=== PATIENT | male | born 1940 | race Caucasian/White ===

== ENCOUNTER → 2020-04-10 | Outpatient (CLI) | payer MEDICARE, BC ==
--- NOTE | 2020-04-10 13:26 | CT ---
EXAMINATION TYPE: CT brain wo con DATE OF EXAM: 04/10/2020 COMPARISON: None HISTORY: 80-year-old male dizziness and fall TECHNIQUE: Examination was done in axial plane without intravenous contrast. Coronal and sagittal r econstructions performed. CT DLP: 1072.3 mGycm Automated exposure control for dose reduction was used. FINDINGS: There is no evidence of acute intracranial hemorrhage, acute ischemic changes, mass, mass-effect, or extra-axial fluid collection. There is no effacement of cerebral sulci or basal subarachnoid cister ns. There is no hydrocephalus. There is no midline shift. Murray-white matter distinction is preserv ed. Moderate cerebral cortical atrophy. Atherosclerotic calcifications within the bilateral carotid sipho ns. Rightward nasal septal deviation. Trace mucosal thickening ethmoid air cells. Mastoid air cells well pneumatized. Orbits and globes are intact. IMPRESSION: Moderate cerebral cortical atrophy. No acute intracranial abnormality seen.
--- NOTE | 2020-04-10 14:42 | US ---
EXAMINATION TYPE: US carotid duplex BILAT DATE OF EXAM: 04/10/2020 COMPARISON: NONE CLINICAL HISTORY: 80-year-old male R55 Syncope. TECHNIQUE: Carotid duplex ultrasound examination. Indirect Doppler criteria was utilized. FINDINGS: EXAM MEASUREMENTS: RIGHT: Peak Systolic Velocity (PSV) cm/sec ----- Right CCA: 65.8 ----- Right ICA: 52.3 ----- Right ECA: 73.9 ICA/CCA ratio: 0.8 RIGHT: End Diastole cm/sec ----- Right CCA: 14.3 ----- Right ICA: 18.8 ----- Right ECA: 11.3 LEFT: Peak Systolic Velocity (PSV) cm/sec ----- Left CCA: 78.5 ----- Left ICA: 59.8 ----- Left ECA: 84.7 ICA/CCA ratio: 0.8 LEFT: End Diastole cm/sec ----- Left CCA: 20.9 ----- Left ICA: 20.8 ----- Left ECA: 9.0 VERTEBRALS (direction of flow): Right Vertebral: Antegrade Left Vertebral: Antegrade Rhythm: Normal Documentation Spec notes: Moderate atherosclerotic changes on the right and mild on the left with no signifi cant velocity increases. IMPRESSION: No hemodynamically significant internal carotid artery stenosis on either side. Criteria for Assigning % of Stenosis / Diameter reduction (Estimation based on the indirect measurements of the internal carotid artery velocities (ICA PSV). 1. Normal (no stenosis)=ICA PSV < 125 cm/s: ratio < 2.0: ICA EDV<40 cm/s. 2. Less than 50% stenosis=ICA PSV < 125 cm/s: ratio < 2.0: ICA EDV<40 cm/s. 3. 50 to 69% stenosis=ICA PSV of 125 to 230 cm/s: ration 2.0 ? 4.0: ICA EDV 40-100 cm/s. 4. Greater than 70% stenosis to near occlusion= ICA PSV > 230 cm/s: ratio > 4.0: ICA EDV > 100 cm/s. 5. Near occlusion= ICA PSV velocities may be low or undetectable: variable ratio and ICA EDV. 6. Total occlusion=unable to detect flow.
--- NOTE | 2020-04-17 17:56 | HM ---
HOLTER MONITOR REPORT [id number] HOLTER MONITOR REPORT: The patient in his diary had no entries. Predominant rhythm appears to be sinus, with a heart rate ranging from 47 to 71 beats per minute with average heart rate of 61 beats per minute. There were rare isolated PACs and PVCs noted. There was no evidence of any significant bradyarrhythmia. FINAL IMPRESSION: This is an unremarkable 24-hour DCG with predominant sinus rhythm, sinus bradycardia, isolated PACs and PVCs. No significant bradyarrhythmia was noted. The patient did not report any symptoms in the diary. MMODL / IJN: [id number] /
== END | disposition home or self-care (01) ==
LOC: RADCTMAIN 10:49
PROVIDERS: ATTEND Family Medicine
DX: G31.9 Degenerative disease of nervous system, unspecified (principal); I49.3 Ventricular premature depolarization; I49.1 Atrial premature depolarization; I49.8 Other specified cardiac arrhythmias
CPT/HCPCS: 70450; 93225; 93226; 93880

== ENCOUNTER 2020-09-30 15:11 | Inpatient (IN) | payer BC, MEDICARE ==
[2020-09-30] MEDS ORDERED: SODIUM CHLORIDE 0.9% 1,000 ML IV STA (16:14)
--- NOTE | 2020-09-30 16:24 | ED ---
General Adult HPI - General Chief complaint: Chest Pain Stated complaint: chest pain Time Seen by Provider: 09/30/20 15:15 Source: patient, RN notes reviewed, old records reviewed Mode of arrival: wheelchair Limitations: no limitations - History of Present Illness Initial comments: This is a 80-year-old male presents emergency Department complaining that his been becoming weaker and weaker over the last month. Patient denies any pain. Patient states he is coughing more and feels like he can't take his big breath as he used to. Patient also states she's had a weight loss over the last couple of months. Patient denies any fever or chills. Patient denies any chest pain or palpitations. Patient denies abdominal pain patient denies nausea vomiting or diarrhea. Patient states she just can't get over the fatigue. She denies any exposure to cold. Patient states she had a second covert shot on September 11. - Related Data Home Medications Medication Instructions Recorded Confirmed Allopurinol [Zyloprim] 300 mg PO HS 09/30/20 09/30/20 Aspirin EC [Ecotrin Low Dose] 81 mg PO HS 09/30/20 09/30/20 Finasteride [Proscar] 5 mg PO HS 09/30/20 09/30/20 Simvastatin [Zocor] 20 mg PO HS 09/30/20 09/30/20 amLODIPine BESYLATE/BENAZEPRIL 1 cap PO HS 09/30/20 09/30/20 [amLODIPine BESYLATE/BENAZEPRIL 10-20 MG] atenoloL [Atenolol] 25 mg PO HS 09/30/20 09/30/20 Allergies Allergy/AdvReac Type Severity Reaction Status Date / Time No Known Allergies Allergy Verified 09/30/20 18:07 Review of Systems ROS Statement: Those systems with pertinent positive or pertinent negative responses have been documented in the HPI. ROS Other: All systems not noted in ROS Statement are negative. Past Medical History Past Medical History: Coronary Artery Disease (CAD), Hyperlipidemia, Hypertension, Prostate Disorder Additional Past Medical History / Comment(s): gout History of Any Multi-Drug Resistant Organisms: None Reported Past Surgical History: Appendectomy, Orthopedic Surgery Past Psychological History: No Psychological Hx Reported Smoking Status: Never smoker, Second hand smoke exposure Past Alcohol Use History: Daily Past Drug Use History: Marijuana General Exam - General Exam Comments Initial Comments: GENERAL: Patient is well-developed and well-nourished. Patient is nontoxic and well- hydrated and is in mild distress. ENT: Neck is soft and supple. No significant lymphadenopathy is noted. Oropharynx is clear. Moist mucous membranes. Neck has full range of motion without eliciting any pain. EYES: The sclera were anicteric and conjunctiva were pink and moist. Extraocular movements were intact and pupils were equal round and reactive to light. Eyelids were unremarkable. PULMONARY: Patient has diminished breath sounds on the right. CARDIOVASCULAR: There is a regular rate and rhythm without any murmurs gallops or rubs. ABDOMEN: Soft and nontender with normal bowel sounds. SKIN: Skin is clear with no lesions or rashes and otherwise unremarkable. NEUROLOGIC: Patient is alert and oriented x3. Cranial nerves II through XII are grossly intact. Motor and sensory are also intact. Normal speech, volume and content. Symmetrical smile. MUSCULOSKELETAL: Normal extremities with adequate strength and full range of motion. No lower extremity swelling or edema. No calf tenderness. LYMPHATICS: No significant lymphadenopathy is noted PSYCHIATRIC: Normal psychiatric evaluation. Limitations: no limitations Course Vital Signs 09/30/20 09/30/20 15:15 17:25 Temperature 98.1 F Pulse Rate 111 H 68 Respiratory 24 18 Rate Blood Pressure 104/60 136/68 O2 Sat by Pulse 86 L 97 Oximetry Medical Decision Making - Medical Decision Making EKG shows sinus rhythm at 76 bpm MS interval 160 QRS 114 Q-T intervals 390 QTC is 438. Patient's EKG shows no ST segment elevation or depression. Chest x-ray shows large mass versus pleural effusion. Computed tomography scan shows large effusion extending to the mediastinum. Area may be infected per the radiologist. I spoke with . she agreed to admit the patient admitted the patient wrote admi tting orders. - Lab Data Result diagrams: 09/30/20 16:17 09/30/20 16:17 Lab Results 09/30/20 09/30/20 09/30/20 Range/Units 16:17 16:17 16:17 WBC 28.9 H (3.8-10.6) k/uL RBC 3.84 L (4.30-5.90) m/uL Hgb 11.4 L (13.0-17.5) gm/dL Hct 36.1 L (39.0-53.0) % MCV 94.1 (80.0-100.0) fL MCH 29.7 (25.0-35.0) pg MCHC 31.6 (31.0-37.0) g/dL RDW 13.6 (11.5-15.5) % Plt Count 489 H (150-450) k/uL MPV 7.6 Neutrophils % 93 % Lymphocytes % 3 % Monocytes % 3 % Eosinophils % 0 % Basophils % 0 % Neutrophils # 26.8 H (1.3-7.7) k/uL Lymphocytes # 0.9 L (1.0-4.8) k/uL Monocytes # 1.0 (0-1.0) k/uL Eosinophils # 0.0 (0-0.7) k/uL Basophils # 0.0 (0-0.2) k/uL PT 11.6 (9.0-12.0) sec INR 1.1 (<1.2) APTT 23.5 (22.0-30.0) sec Sodium 133 L (137-145) mmol/L Potassium 4.9 (3.5-5.1) mmol/L Chloride 99 (98-107) mmol/L Carbon Dioxide 23 (22-30) mmol/L Anion Gap 11 mmol/L BUN 37 H (9-20) mg/dL Creatinine 1.52 H (0.66-1.25) mg/dL Est GFR (CKD-EPI)AfAm 50 (>60 ml/min/1.73 sqM) Est GFR (CKD-EPI)NonAf 43 (>60 ml/min/1.73 sqM) Glucose 128 H (74-99) mg/dL Plasma Lactic Acid Shakir (0.7-2.0) mmol/L Calcium 9.8 (8.4-10.2) mg/dL Magnesium 1.8 (1.6-2.3) mg/dL Total Bilirubin 0.5 (0.2-1.3) mg/dL AST 95 H (17-59) U/L ALT 141 H (4-49) U/L Alkaline Phosphatase 172 H (38-126) U/L Troponin I (0.000-0.034) ng/mL NT-Pro-B Natriuret Pep pg/mL Total Protein 6.5 (6.3-8.2) g/dL Albumin 3.1 L (3.5-5.0) g/dL Urine Color Urine Appearance (Clear) Urine pH (5.0-8.0) Ur Specific [place] (1.001-1.035) Urine Protein (Negative) Urine Glucose (UA) (Negative) Urine Ketones (Negative) Urine Blood (Negative) Urine Nitrite (Negative) Urine Bilirubin (Negative) Urine Urobilinogen (<2.0) mg/dL Ur Leukocyte Esterase (Negative) Urine RBC (0-5) /hpf Urine WBC (0-5) /hpf Ur Squamous Epith Cells (0-4) /hpf Urine Bacteria (None) /hpf Hyaline Casts (0-2) /lpf Urine Mucus (None) /hpf 09/30/20 09/30/20 09/30/20 Range/Units 16:17 16:17 16:17 WBC (3.8-10.6) k/uL RBC (4.30-5.90) m/uL Hgb (13.0-17.5) gm/dL Hct (39.0-53.0) % MCV (80.0-100.0) fL MCH (25.0-35.0) pg MCHC (31.0-37.0) g/dL RDW (11.5-15.5) % Plt Count (150-450) k/uL MPV Neutrophils % % Lymphocytes % % Monocytes % % Eosinophils % % Basophils % % Neutrophils # (1.3-7.7) k/uL Lymphocytes # (1.0-4.8) k/uL Monocytes # (0-1.0) k/uL Eosinophils # (0-0.7) k/uL Basophils # (0-0.2) k/uL PT (9.0-12.0) sec INR (<1.2) APTT (22.0-30.0) sec Sodium (137-145) mmol/L Potassium (3.5-5.1) mmol/L Chloride (98-107) mmol/L Carbon Dioxide (22-30) mmol/L Anion Gap mmol/L BUN (9-20) mg/dL Creatinine (0.66-1.25) mg/dL Est GFR (CKD-EPI)AfAm (>60 ml/min/1.73 sqM) Est GFR (CKD-EPI)NonAf (>60 ml/min/1.73 sqM) Glucose (74-99) mg/dL Plasma Lactic Acid Shakir 1.7 (0.7-2.0) mmol/L Calcium (8.4-10.2) mg/dL Magnesium (1.6-2.3) mg/dL Total Bilirubin (0.2-1.3) mg/dL AST (17-59) U/L ALT (4-49) U/L Alkaline Phosphatase (38-126) U/L Troponin I <0.012 (0.000-0.034) ng/mL NT-Pro-B Natriuret Pep 1420 pg/mL Total Protein (6.3-8.2) g/dL Albumin (3.5-5.0) g/dL Urine Color Urine Appearance (Clear) Urine pH (5.0-8.0) Ur Specific [place] (1.001-1.035) Urine Protein (Negative) Urine Glucose (UA) (Negative) Urine Ketones (Negative) Urine Blood (Negative) Urine Nitrite (Negative) Urine Bilirubin (Negative) Urine Urobilinogen (<2.0) mg/dL Ur Leukocyte Esterase (Negative) Urine RBC (0-5) /hpf Urine WBC (0-5) /hpf Ur Squamous Epith Cells (0-4) /hpf Urine Bacteria (None) /hpf Hyaline Casts (0-2) /lpf Urine Mucus (None) /hpf 09/30/20 Range/Units 17:32 WBC (3.8-10.6) k/uL RBC (4.30-5.90) m/uL Hgb (13.0-17.5) gm/dL Hct (39.0-53.0) % MCV (80.0-100.0) fL MCH (25.0-35.0) pg MCHC (31.0-37.0) g/dL RDW (11.5-15.5) % Plt Count (150-450) k/uL MPV Neutrophils % % Lymphocytes % % Monocytes % % Eosinophils % % Basophils % % Neutrophils # (1.3-7.7) k/uL Lymphocytes # (1.0-4.8) k/uL Monocytes # (0-1.0) k/uL Eosinophils # (0-0.7) k/uL Basophils # (0-0.2) k/uL PT (9.0-12.0) sec INR (<1.2) APTT (22.0-30.0) sec Sodium (137-145) mmol/L Potassium (3.5-5.1) mmol/L Chloride (98-107) mmol/L Carbon Dioxide (22-30) mmol/L Anion Gap mmol/L BUN (9-20) mg/dL Creatinine (0.66-1.25) mg/dL Est GFR (CKD-EPI)AfAm (>60 ml/min/1.73 sqM) Est GFR (CKD-EPI)NonAf (>60 ml/min/1.73 sqM) Glucose (74-99) mg/dL Plasma Lactic Acid Shakir (0.7-2.0) mmol/L Calcium (8.4-10.2) mg/dL Magnesium (1.6-2.3) mg/dL Total Bilirubin (0.2-1.3) mg/dL AST (17-59) U/L ALT (4-49) U/L Alkaline Phosphatase (38-126) U/L Troponin I (0.000-0.034) ng/mL NT-Pro-B Natriuret Pep pg/mL Total Protein (6.3-8.2) g/dL Albumin (3.5-5.0) g/dL Urine Color Yellow Urine Appearance Cloudy (Clear) Urine pH 5.0 (5.0-8.0) Ur Specific [place] 1.021 (1.001-1.035) Urine Protein Trace H (Negative) Urine Glucose (UA) Negative (Negative) Urine Ketones Negative (Negative) Urine Blood Negative (Negative) Urine Nitrite Negative (Negative) Urine Bilirubin Negative (Negative) Urine Urobilinogen 2.0 (<2.0) mg/dL Ur Leukocyte Esterase Negative (Negative) Urine RBC 2 (0-5) /hpf Urine WBC 1 (0-5) /hpf Ur Squamous Epith Cells 1 (0-4) /hpf Urine Bacteria Rare H (None) /hpf Hyaline Casts 5 H (0-2) /lpf Urine Mucus Occasional H (None) /hpf Disposition Clinical Impression: Pleural effusion, Lung infection Disposition: ADMITTED IP TO THIS HOSP Referrals: Ryan Gay MD [Primary Care Provider] - 1-2 days Time of Disposition: 20:17
[2020-09-30 16:27] LABS: Basophils % (A) 0 %; Eosinophils % (A) 0 %; HCT 36.1 % (39.0-53.0); HGB 11.4 gm/dL (13.0-17.5); Lymphocytes # (A) 0.9 k/uL (1.0-4.8); Lymphocytes % (A) 3 %; MCH 29.7 pg (25.0-35.0); MCHC 31.6 g/dL (31.0-37.0); MCV 94.1 fL (80.0-100.0); Mean Platelet Volume 7.6; Monocytes % (A) 3 %; Neutrophils % (A) 93 %; Platelet Count 489 k/uL (150-450); RBC 3.84 m/uL (4.30-5.90); RDW 13.6 % (11.5-15.5); WBC 28.9 k/uL (3.8-10.6)
[2020-09-30 16:32] LABS: Neutrophils # (A) 26.8 k/uL (1.3-7.7)
[2020-09-30 16:35] LABS: INR 1.1 (<1.2); Prothrombin Time 11.6 sec (9.0-12.0)
[2020-09-30 16:36] LABS: Partial Thromboplastin Time 23.5 sec (22.0-30.0)
[2020-09-30 16:40] LABS: Albumin 3.1 g/dL (3.5-5.0); Calcium 9.8 mg/dL (8.4-10.2); Magnesium 1.8 mg/dL (1.6-2.3); Potassium 4.9 mmol/L (3.5-5.1); Total Bilirubin 0.5 mg/dL (0.2-1.3); Total Protein 6.5 g/dL (6.3-8.2)
--- NOTE | 2020-09-30 17:32 | XR ---
EXAMINATION TYPE: XR chest 2V DATE OF EXAM: 09/30/2020 CLINICAL HISTORY: Weakness. TECHNIQUE: Frontal and lateral view of the chest. COMPARISON: None FINDINGS: The cardiomediastinal silhouette is within normal limits for size. Pulmonary vasculature i s normal. There is a large masslike confluent opacity of the right lower lobe. No pleural effusion o r pneumothorax seen. The osseous structures are intact. IMPRESSION: Large masslike confluent opacity of the right lower lobe. CT chest with contrast is lopez mmended for further evaluation.
[2020-09-30] MEDS ORDERED: cefTRIAXone IN SWFI 1,000 MG/10 ML SYRINGE IVP STA (17:46)
[2020-09-30 17:48] LABS: Appearance,Urine Cloudy (Clear); Bacteria,Urine Rare /hpf; Bilirubin,Urine Negative (Negative); Blood,Urine Negative (Negative); Color,Urine Yellow; Glucose,Urine (UA) Negative (Negative); Hyaline Casts,Urine 5 /lpf (0-2); Ketones,Urine Negative (Negative); Leukocyte Esterase,Urine Negative (Negative); Mucus,Urine Occasional /hpf; Nitrite,Urine Negative (Negative); Protein,Urine Trace (Negative); RBC,Urine 2 /hpf (0-5); Specific Gravity,Urine 1.021 (1.001-1.035); Squamous Epithelial Cell,Urine 1 /hpf (0-4); WBC,Urine 1 /hpf (0-5)
[2020-09-30] MEDS ORDERED: RX INFO: IV CONTRAST WAS GIVEN 1 EACH MISC MISCELLANE PRN (17:48)
--- NOTE | 2020-09-30 20:02 | CT ---
EXAMINATION TYPE: CT chest w con DATE OF EXAM: 09/30/2020 COMPARISON: None MRI of the abdomen get out of here HISTORY: chest mass CT DLP: 422.9 mGycm Automated exposure control for dose reduction was used. CONTRAST: CT scan of the chest is performed with IV Contrast, patient injected with 100 mL of Isovue 300. FINDINGS: LUNGS: There is a large loculated fluid collection noted posteriorly measuring approximately 22.5 cm in craniocaudal dimension by 11.3 cm in AP dimension by 15.4 cm in transverse dimension infected spencer ection is not excluded. There is curvilinear extension to the esophagus. The remainder of the lungs a re clear. Mild right basilar atelectasis. MEDIASTINUM: There are no greater than 1 cm hilar or mediastinal lymph nodes. No pericardial effusi on is seen. Thoracic aorta is of normal caliber. The heart is not enlarged. UPPER ABDOMEN: Left renal cyst identified. OTHER: No additional significant abnormality is seen. IMPRESSION: 1. Large loculated pleural collection posteriorly with extension to the mediastinum adjacent to the e sophagus. Infected collection is not excluded.
[2020-09-30] MEDS ORDERED: SODIUM CHLORIDE 0.9% 1,000 ML IV ONE (20:17)
[2020-09-30] MEDS ORDERED: AZITHROMYCIN 500 MG in SODIUM CHLORIDE 0.9% 250 ML IVPB STA (20:24)
[2020-10-01] MEDS ORDERED: PIPERACILLIN-TAZOBACTAM 3.375 GM in SODIUM CHLORIDE 0.9% 100 ML IVPB SCH ×2
[2020-10-01] MEDS: PIPERACILLIN-TAZOBACTAM 3.375 GM in SODIUM CHLORIDE 0.9% 100 ML IVPB SCH ×3 (04:45→23:11)
--- NOTE | 2020-10-01 08:08 | P.HPIM ---
History of Present Illness H&P Date: 10/01/20 Chief Complaint: Pleural effusion This is a 80-year-old white male with known history of hyperlipidemia and coronary disease who states for the last several weeks he's been feeling somewhat poorly. He states no overt shortness of breath with dyspnea on exertion lately. Evaluation emergency room did show large loculated pleural effusion collection and he is now omitted for appropriate treatment. There is history of diarrhea. No nausea or vomiting. He is concerned with his home situation due to the fact that he lives alone. He is a nonsmoker. No overt second hand smoke stated. Review of Systems Constitutional: Denies chills, Denies fever Eyes: denies blurred vision, denies pain Ears, nose, mouth and throat: Denies headache, Denies sore throat Cardiovascular: Denies chest pain, Denies shortness of breath Respiratory: Reports as per HPI, Denies hemoptysis Gastrointestinal: Denies abdominal pain, Denies diarrhea, Denies nausea, Denies vomiting Musculoskeletal: Denies myalgias Integumentary: Denies pruritus, Denies rash Neurological: Denies numbness, Denies weakness Past Medical History Past Medical History: Coronary Artery Disease (CAD), Hyperlipidemia, Hypertension, Prostate Disorder Additional Past Medical History / Comment(s): gout History of Any Multi-Drug Resistant Organisms: None Reported Past Surgical History: Appendectomy, Orthopedic Surgery Past Psychological History: No Psychological Hx Reported Smoking Status: Never smoker, Second hand smoke exposure Past Alcohol Use History: Daily Past Drug Use History: Marijuana Medications and Allergies Home Medications Medication Instructions Recorded Confirmed Type Allopurinol [Zyloprim] 300 mg PO HS 09/30/20 09/30/20 History Aspirin EC [Ecotrin Low Dose] 81 mg PO HS 09/30/20 09/30/20 History Finasteride [Proscar] 5 mg PO HS 09/30/20 09/30/20 History Simvastatin [Zocor] 20 mg PO HS 09/30/20 09/30/20 History amLODIPine BESYLATE/BENAZEPRIL 1 cap PO HS 09/30/20 09/30/20 History [amLODIPine BESYLATE/BENAZEPRIL 10-20 MG] atenoloL [Atenolol] 25 mg PO HS 09/30/20 09/30/20 History Allergies Allergy/AdvReac Type Severity Reaction Status Date / Time No Known Allergies Allergy Verified 09/30/20 18:07 Physical Exam Vitals: Vital Signs Temp Pulse Resp BP Pulse Ox 10/01/20 06:00 75 18 104/65 95 09/30/20 23:00 99.2 F 73 18 105/53 95 09/30/20 20:17 98.5 F 66 18 119/73 96 09/30/20 17:25 68 18 136/68 97 09/30/20 15:15 98.1 F 111 H 24 104/60 86 L Intake and Output 09/30/20 10/01/20 10/01/20 22:59 06:59 14:59 Other: Weight 87.543 kg - Constitutional General appearance: no acute distress - EENT Eyes: EOMI - Respiratory Respiratory: bilateral: diminished - Cardiovascular Rhythm: regular Heart sounds: normal: S1, S2 Abnormal Heart Sounds: no S3 Gallop - Gastrointestinal General gastrointestinal: soft, no tenderness - Psychiatric Psychiatric: appropriate affect Results CBC & Chem 7: 09/30/20 16:17 09/30/20 16:17 Labs: Abnormal Lab Results - Last 24 Hours (Table) 09/30/20 09/30/20 09/30/20 Range/Units 16:17 16:17 17:32 WBC 28.9 H (3.8-10.6) k/uL RBC 3.84 L (4.30-5.90) m/uL Hgb 11.4 L (13.0-17.5) gm/dL Hct 36.1 L (39.0-53.0) % Plt Count 489 H (150-450) k/uL Neutrophils # 26.8 H (1.3-7.7) k/uL Lymphocytes # 0.9 L (1.0-4.8) k/uL Sodium 133 L (137-145) mmol/L BUN 37 H (9-20) mg/dL Creatinine 1.52 H (0.66-1.25) mg/dL Glucose 128 H (74-99) mg/dL AST 95 H (17-59) U/L ALT 141 H (4-49) U/L Alkaline Phosphatase 172 H (38-126) U/L Albumin 3.1 L (3.5-5.0) g/dL Urine Protein Trace H (Negative) Urine Bacteria Rare H (None) /hpf Hyaline Casts 5 H (0-2) /lpf Urine Mucus Occasional H (None) /hpf Coronavirus (PCR) (Not Detectd) 09/30/20 Range/Units 21:08 WBC (3.8-10.6) k/uL RBC (4.30-5.90) m/uL Hgb (13.0-17.5) gm/dL Hct (39.0-53.0) % Plt Count (150-450) k/uL Neutrophils # (1.3-7.7) k/uL Lymphocytes # (1.0-4.8) k/uL Sodium (137-145) mmol/L BUN (9-20) mg/dL Creatinine (0.66-1.25) mg/dL Glucose (74-99) mg/dL AST (17-59) U/L ALT (4-49) U/L Alkaline Phosphatase (38-126) U/L Albumin (3.5-5.0) g/dL Urine Protein (Negative) Urine Bacteria (None) /hpf Hyaline Casts (0-2) /lpf Urine Mucus (None) /hpf Coronavirus (PCR) Detected A (Not Detectd) Assessment and Plan (1) Pleural effusion Current Visit: Yes Status: Acute Code(s): J90 - PLEURAL EFFUSION, NOT ELSEWHERE CLASSIFIED SNOMED Code(s): 33170159 Plan: About treatment Consult pulmonology for probable thoracentesis. Check CBC and CMP in a.m. Reconcile home medications. Prognosis is guarded.
[2020-10-01 10:40] LABS: INR 1.1 (<1.2); Prothrombin Time 11.6 sec (9.0-12.0)
--- NOTE | 2020-10-01 13:17 | P.CNPUL ---
History of Present Illness Consult date: 10/01/20 Requesting physician: Ryan Gay Chief complaint: Weakness. History of present illness: 80-year-old male, who presents to the emergency department, on September 30, complaining of chest pain, and weakness. The patient states she has not been feeling well for a number of months now, maybe 2. The patient denies any pain. He is coughing. He feels like his breathing is impaired. He's also had significant weight loss over the last couple of months. There is no fever or chills. He denies any nausea, vomiting, diarrhea, or abdominal pain. He denies any genitourinary complaints. The patient was seen in the emergency room, in ER room 19. The patient was on room air. He was not receiving any IV fluids. Chest x-ray revealed a masslike infiltrate in the right lung. On computed tomography scan, there is a loculated fluid collection in the right lung, which is quite extensive. White count 28.9, hemoglobin 11.4, hematocrit 36.1, platelet count 489,000. PT, INR, PTT is normal. Sodium 133, potassium 4.9, chlorides 99, CO2 23, anion gap 11, BUN 37, creatinine 1.52. AST 95, and OT 141. N-terminal proBNP 1420. Urine is essentially negative. Coronavirus testing was positive. Review of Systems REVIEW OF SYSTEMS: CONSTITUTIONAL: Weakness and fatigue. Decreased appetite. Weight loss.] NEUROLOGIC: [ Negative.] HEENT: [ Negative.] CARDIAC: [Negative.] PULMONARY: Shortness of breath. Cough.] GI: Anorexia/cachexia. : [Negative.] RHEUMATOLOGIC: [ Negative.] IMMUNOLOGIC: [ Negative.] ENDOCRINE: [Negative. ] DERMATOLOGIC: [Negative.] Past Medical History Past Medical History: Coronary Artery Disease (CAD), Hyperlipidemia, Hyp ertension, Prostate Disorder Additional Past Medical History / Comment(s): gout History of Any Multi-Drug Resistant Organisms: None Reported Past Surgical History: Appendectomy, Orthopedic Surgery Past Psychological History: No Psychological Hx Reported Smoking Status: Never smoker, Second hand smoke exposure Past Alcohol Use History: Daily Past Drug Use History: Marijuana Medications and Allergies Home Medications Medication Instructions Recorded Confirmed Type Allopurinol [Zyloprim] 300 mg PO HS 09/30/20 09/30/20 History Aspirin EC [Ecotrin Low Dose] 81 mg PO HS 09/30/20 09/30/20 History Finasteride [Proscar] 5 mg PO HS 09/30/20 09/30/20 History Simvastatin [Zocor] 20 mg PO HS 09/30/20 09/30/20 History amLODIPine BESYLATE/BENAZEPRIL 1 cap PO HS 09/30/20 09/30/20 History [amLODIPine BESYLATE/BENAZEPRIL 10-20 MG] atenoloL [Atenolol] 25 mg PO HS 09/30/20 09/30/20 History Allergies Allergy/AdvReac Type Severity Reaction Status Date / Time No Known Allergies Allergy Verified 09/30/20 18:07 Physical Exam Osteopathic Statement: *. No significant issues noted on an osteopathic structural exam other than those noted in the History and Physical/Consult. Vitals: Vital Signs Temp Pulse Resp BP Pulse Ox 10/01/20 06:00 75 18 104/65 95 09/30/20 23:00 99.2 F 73 18 105/53 95 09/30/20 20:17 98.5 F 66 18 119/73 96 09/30/20 17:25 68 18 136/68 97 09/30/20 15:15 98.1 F 111 H 24 104/60 86 L Intake and Output 09/30/20 10/01/20 10/01/20 22:59 06:59 14:59 Other: Weight 87.543 kg No acute distress, oriented 3. Currently on room air. No respiratory difficulty. HEENT examination is grossly unremarkable. Neck supple. Full range of motion. No adenopathy thyromegaly or neck vein distention. Cardiovascular examination reveals regular rhythm rate. S1-S2 normal. No S3 or S4. No discernible murmur noted. Heart rate 75 bpm. Lungs reveal scattered rhonchi. Diminished breath sounds on the right. No wheezes or crackles. Abdomen soft bowel sounds are heard. No masses or tenderness. Extremities are intact. No cyanosis clubbing or edema. Skin is without rash or lesion. Neurologic examination is brief but nonfocal. Results - Laboratory Findings CBC and BMP: 09/30/20 16:17 09/30/20 16:17 PT/INR, D-dimer PT 11.6 sec (9.0-12.0) 10/01/20 09:12 INR 1.1 (<1.2) 10/01/20 09:12 Abnormal lab findings: Abnormal Labs 09/30/20 09/30/20 09/30/20 16:17 16:17 17:32 WBC 28.9 H RBC 3.84 L Hgb 11.4 L Hct 36.1 L Plt Count 489 H Neutrophils # 26.8 H Lymphocytes # 0.9 L Sodium 133 L BUN 37 H Creatinine 1.52 H Glucose 128 H AST 95 H ALT 141 H Alkaline Phosphatase 172 H Albumin 3.1 L Urine Protein Trace H Urine Bacteria Rare H Hyaline Casts 5 H Urine Mucus Occasional H Coronavirus (PCR) 09/30/20 21:08 WBC RBC Hgb Hct Plt Count Neutrophils # Lymphocytes # Sodium BUN Creatinine Glucose AST ALT Alkaline Phosphatase Albumin Urine Protein Urine Bacteria Hyaline Casts Urine Mucus Coronavirus (PCR) Detected A - Diagnostic Findings Chest x-ray: image reviewed CT scan - chest: image reviewed Assessment and Plan Assessment: Loculated fluid collection, right posterior chest, of unclear etiology. This could relate to lung abscess, or infected parapneumonic effusion. Weakness, fatigue, weight loss, decreased appetite, all secondary to above. History of coronary artery disease. History of hyperlipidemia. History of hypertension. History of BPH. Plan: Plan dated 10/01/2020. The patient's chest x-ray and CAT scan were reviewed. There appears to be a l arge loculated pleural effusion in the right posterior chest area. The patient will have an ultrasound of the right chest. The patient has not been feeling well for about 2 months. He's had profound weakness, fatigue, decreased appetite, weight loss, and more recently, shortness of breath. Additional recommendations and suggestions are forthcoming. Prognosis is guarded. Ultrasound of the right chest is ordered. He will likely benefit from thoracentesis. He also may benefit from cardiothoracic consultation. I will await the results of the ultrasound. The patient's currently on Zosyn. ID should be consulted. Zithromax can be discontinued. Time with Patient: Greater than 30
--- NOTE | 2020-10-01 15:01 | US ---
EXAMINATION TYPE: US chest DATE OF EXAM: 10/01/2020 COMPARISON: CT and chest x-ray from yesterday CLINICAL HISTORY: pleural effusion. TECHNIQUE: Targeted ultrasound of the posterior lower right hemithorax EXAM MEASUREMENTS: Right Pleural Effusion pocket size: 14.9 cm Right skin surface to fluid distance: 1.4 cm Right side marked for possible thoracentesis outside the dept. Pulmonologists are able to review the images in the patient?s EMR. Loculated Right pleural effusion. IMPRESSIONS: Images saved correlate with CT one day earlier, moderate to large size nonsimple right p leural fluid collection with internal echoes and septations.
--- NOTE | 2020-10-01 15:59 | US ---
EXAMINATION TYPE: US guided chest tube insertion DATE OF EXAM: 10/01/2020 COMPARISON: Ultrasound same date, CT 09/30/2020 HISTORY: Right Pleural effusion. FINDINGS: Maximal barrier technique was utilized. The skin overlying a suitable pocket of fluid in t he posterior right chest was localized and the overlying skin prepped and draped. Lidocaine was used for local anesthesia. Ultrasound was used with sterile technique. A 21-gauge needle was advanced in to the pleural fluid collection using ultrasound guidance 0.18 inch wire was advanced and the access site was dilated and subsequently a sheath advanced over an upsized wire following dilation, 0.038 in ch J-wire. 8 [place] tube was subsequently advanced over the wire and fixed in place. 20 cc obtained f or laboratory analysis, yellow turbid fluid. Catheter attached to water seal. Post procedure chest x- ray pending. There is no immediate complication. The patient discharged in stable condition without complication. IMPRESSION: STATUS POST ULTRASOUND GUIDED PLEURAL DRAINAGE TUBE CATHETER PLACEMENT, POST PROCEDURE EST X-RAY PENDING. THIS PROCEDURE WAS PERFORMED BY THE UNDERSIGNED. Specimen sent for laboratory sandra lysis.
--- NOTE | 2020-10-01 16:33 | XR ---
EXAMINATION TYPE: XR chest 1V portable DATE OF EXAM: 10/01/2020 COMPARISON: Chest x-ray 09/30/2020 HISTORY: Status post right chest tube placement TECHNIQUE: Single frontal view of the chest is obtained. FINDINGS: Pigtail catheter is been placed posteriorly on the right. Patient's abnormal fluid collec tion, density in the right lung base persists. There is no evident pneumothorax. No other significant interval change. IMPRESSION: No evident complication status post pigtail catheter placement within the right pleural space.
[2020-10-01 19:49] LABS: Appearance,BF Cloudy; Nucleated Cells, Body Fluid 94000 /uL; RBC, Body Fluid 4500 /uL
[2020-10-01 19:55] LABS: Mononuclear WBC,Body Fluid 7 %; Polynuclear WBC,Body Fluid 91 %; Total Cells Counted,Body Fluid 100
[2020-10-01] MEDS ORDERED: AZITHROMYCIN 500 MG in SODIUM CHLORIDE 0.9% 250 ML IVPB SCH (21:00)
[2020-10-01] MEDS: FINASTERIDE 5 MG TAB PO SCH (23:12)
[2020-10-01] MEDS: lisinopriL 20 MG TAB PO SCH (23:12)
[2020-10-01] MEDS: ATORVASTATIN 10 MG TAB PO SCH (23:12)
[2020-10-01] MEDS: allopurinoL 300 MG TAB PO SCH (23:13)
[2020-10-01] MEDS: atenoloL 25 MG TAB PO SCH (23:13)
[2020-10-01] MEDS: ASPIRIN 81 MG PO SCH (23:13)
[2020-10-01] MEDS: amLODIPine 10 MG TAB PO SCH (23:13)
[2020-10-02 05:27] LABS: Glucose, BF Source Pleural Fluid; Glucose, Body Fluid <4 mg/dL; LDH, Body Fluid Source Pleural Fluid
[2020-10-02] MEDS: PIPERACILLIN-TAZOBACTAM 3.375 GM in SODIUM CHLORIDE 0.9% 100 ML IVPB SCH ×3 (05:45→20:21)
[2020-10-02 08:49] LABS: HGB 10.4 gm/dL (13.0-17.5); MCH 31.1 pg (25.0-35.0); MCHC 33.4 g/dL (31.0-37.0); MCV 93.1 fL (80.0-100.0); Mean Platelet Volume 7.6; Platelet Count 426 k/uL (150-450); RBC 3.33 m/uL (4.30-5.90); RDW 13.3 % (11.5-15.5); WBC 16.5 k/uL (3.8-10.6)
[2020-10-02 09:04] LABS: ALT 141 U/L (4-49); AST 106 U/L (17-59); African American GFR (CKD) 75 (>60 ml/min/1.73 sqM); Albumin 2.5 g/dL (3.5-5.0); Albumin/Globulin Ratio 0.8; Alkaline Phosphatase 141 U/L (38-126); Anion Gap 9 mmol/L; Blood Urea Nitrogen 27 mg/dL (9-20); Carbon Dioxide 23 mmol/L (22-30); Chloride 104 mmol/L (98-107); Globulin 3.2 g/dL; Glucose 92 mg/dL (74-99); Non-African American GFR(CKD) 65 (>60 ml/min/1.73 sqM); Potassium 4.4 mmol/L (3.5-5.1); Sodium 136 mmol/L (137-145); Total Bilirubin 0.5 mg/dL (0.2-1.3); Total Protein 5.7 g/dL (6.3-8.2)
--- NOTE | 2020-10-02 10:08 | P.GSCN ---
History of Present Illness Consult date: 10/02/20 Reason for Consult: Right sided empyema Requesting physician: Mae Payton History of present illness: This is a 80-year-old gentleman who follows on an outpatient basis with Dr. Gay. He has a previous medical history of coronary artery disease, hyperlipidemia, hypertension, gout, prostate disorder. He had been experiencing shortness of breath for approximately 2 months along with occasional nonproductive cough, generalized weakness, and constipation from iron supplementation. He denied any fever or chest pain. He was at his data support specialist on Tuesday for a routine follow-up appointment and was instructed to report to the emergency room at [facility]. Chest x-ray demonstrated large masslike confluent opacity in the right lower lobe. Chest CT was also completed demonstrating large loculated pleural collection posteriorly with extension into the mediastinum adjacent to the esophagus. EKG demonstrated sinus rhythm without acute ischemic changes. WBC 28.9, hemoglobin 11.4, platelet count 489, BUN 37, creatinine 1.5 to lactic acid 1.7, troponin negative, BNP 1420, AST 95, ALT 141, and coronavirus detected on PCR. The patient was admitted for evaluation and treatment with consultation placed to pulmonology. Chest ultrasound was ordered, subsequently interventional radiology was consulted and placed a right-sided pigtail catheter with fluid sent for culture, the fluid does appear exudative in nature. The patient was placed on IV Zosyn. He has remained afebrile. Oxygen saturation has remained in the mid 90s on room air. Due to possible empyema consultation was placed to Dr. Post from cardiothoracic surgery for recommendations. Review of Systems Review of systems was completed and was negative except as noted Past Medical History Past Medical History: Coronary Artery Disease (CAD), Hyperlipidemia, Hyperten jun, Prostate Disorder Additional Past Medical History / Comment(s): gout History of Any Multi-Drug Resistant Organisms: None Reported Past Surgical History: Appendectomy, Orthopedic Surgery Past Anesthesia/Blood Transfusion Reactions: No Reported Reaction Past Psychological History: No Psychological Hx Reported Smoking Status: Never smoker Past Alcohol Use History: Daily Additional Past Alcohol Use History / Comment(s): Admits to 2-3 drinks 3 times a week, states he's had none in the last 2 months Past Drug Use History: Marijuana - Past Family History Mother Family Medical History: Cancer Father Family Medical History: COPD Medications and Allergies Home Medications Medication Instructions Recorded Confirmed Type Allopurinol [Zyloprim] 300 mg PO HS 09/30/20 09/30/20 History Aspirin EC [Ecotrin Low Dose] 81 mg PO HS 09/30/20 09/30/20 History Finasteride [Proscar] 5 mg PO HS 09/30/20 09/30/20 History Simvastatin [Zocor] 20 mg PO HS 09/30/20 09/30/20 History amLODIPine BESYLATE/BENAZEPRIL 1 cap PO HS 09/30/20 09/30/20 History [amLODIPine BESYLATE/BENAZEPRIL 10-20 MG] atenoloL [Atenolol] 25 mg PO HS 09/30/20 09/30/20 History Allergies Allergy/AdvReac Type Severity Reaction Status Date / Time No Known Allergies Allergy Verified 09/30/20 18:07 Surgical - Exam Vital Signs Temp Pulse Resp BP Pulse Ox 98.1 F 111 H 24 104/60 86 L 09/30/20 15:15 09/30/20 15:15 09/30/20 15:15 09/30/20 15:15 09/30/20 15:15 CONSTITUTIONAL: Awake and alert, appears comfortable, cooperative, well- developed, well-nourished, no pain, no acute distress EYES: Pupils equal, round, reactive to light, normal ocular movement ENT: Moist mucous membranes without oral lesions present NECK: No masses, no bruits, trachea midline RESPIRATORY: Lungs sounds diminished to auscultation bilaterally. Respirations even, nonlabored. Currently on room air with oxygen saturation mid 90s. Strong nonproductive cough. No chest wall deformities. No clubbing or cyanosis present. Right-sided pigtail catheter present, connected to atrium with continuous wall suction, 1100 mL cloudy, milky yellow fluid present in the atrium, no air leak present. CARDIOVASCULAR: S1, S2 present. Regular rate and rhythm. Palpable peripheral pulses bilaterally. No edema present. No calf pain or tenderness noted. GASTROINTESTINAL: Abdomen soft, nontender, nondistended without masses or organomegaly noted. There is no rebound or guarding present. Active bowel sounds present 4 quadrants. GENITOURINARY: Deferred INTEGUMENTARY: Skin is warm and dry with evidence of good perfusion. NEUROLOGIC: Cranial nerves II through XII intact, normal coordination, no obvious motor or sensory deficits, speech is normal MUSKULOSKELETAL: Able to move all extremities, strength equal bilaterally, normal posture PSYCHIATRIC: Alert and oriented to person place and time, appropriate affect, intact judgment and insight Results - Labs 10/02/20 07:05 10/02/20 07:05 Abnormal Lab Results - Last 24 Hours (Table) 10/02/20 10/02/20 Range/Units 07:05 07:05 WBC 16.5 H (3.8-10.6) k/uL RBC 3.33 L (4.30-5.90) m/uL Hgb 10.4 L (13.0-17.5) gm/dL Hct 31.0 L (39.0-53.0) % Sodium 136 L (137-145) mmol/L BUN 27 H (9-20) mg/dL AST 106 H (17-59) U/L ALT 141 H (4-49) U/L Alkaline Phosphatase 141 H (38-126) U/L Total Protein 5.7 L (6.3-8.2) g/dL Albumin 2.5 L (3.5-5.0) g/dL Microbiology - Last 24 Hours (Table) 10/01/20 15:15 Acid Fast Bacilli Culture - Preliminary Pleural Fluid 10/01/20 15:15 Body Fluid Culture - Preliminary Pleural Fluid 10/01/20 15:15 Fungal Culture - Preliminary Pleural Fluid 10/01/20 15:15 Anaerobic Culture - Preliminary Pleural Fluid 09/30/20 17:59 Blood Culture - Preliminary Blood No Growth after 24 hours 09/30/20 17:55 Blood Culture - Preliminary Blood No Growth after 24 hours Diabetes panel 10/02/20 Range/Units 07:05 Sodium 136 L (137-145) mmol/L Potassium 4.4 (3.5-5.1) mmol/L Chloride 104 (98-107) mmol/L Carbon Dioxide 23 (22-30) mmol/L BUN 27 H (9-20) mg/dL Creatinine 1.08 (0.66-1.25) mg/dL Glucose 92 (74-99) mg/dL Calcium 9.0 (8.4-10.2) mg/dL AST 106 H (17-59) U/L ALT 141 H (4-49) U/L Alkaline Phosphatase 141 H (38-126) U/L Total Protein 5.7 L (6.3-8.2) g/dL Albumin 2.5 L (3.5-5.0) g/dL Calcium panel 10/02/20 Range/Units 07:05 Calcium 9.0 (8.4-10.2) mg/dL Albumin 2.5 L (3.5-5.0) g/dL Pituitary panel 10/02/20 Range/Units 07:05 Sodium 136 L (137-145) mmol/L Potassium 4.4 (3.5-5.1) mmol/L Chloride 104 (98-107) mmol/L Carbon Dioxide 23 (22-30) mmol/L BUN 27 H (9-20) mg/dL Creatinine 1.08 (0.66-1.25) mg/dL Glucose 92 (74-99) mg/dL Calcium 9.0 (8.4-10.2) mg/dL Adrenal panel 10/02/20 Range/Units 07:05 Sodium 136 L (137-145) mmol/L Potassium 4.4 (3.5-5.1) mmol/L Chloride 104 (98-107) mmol/L Carbon Dioxide 23 (22-30) mmol/L BUN 27 H (9-20) mg/dL Creatinine 1.08 (0.66-1.25) mg/dL Glucose 92 (74-99) mg/dL Calcium 9.0 (8.4-10.2) mg/dL Total Bilirubin 0.5 (0.2-1.3) mg/dL AST 106 H (17-59) U/L ALT 141 H (4-49) U/L Alkaline Phosphatase 141 H (38-126) U/L Total Protein 5.7 L (6.3-8.2) g/dL Albumin 2.5 L (3.5-5.0) g/dL - Imaging Chest x-ray: report reviewed, image reviewed CT scan - chest: report reviewed, image reviewed EKG: image reviewed Assessment and Plan Assessment: 1. Large loculated right-sided pleural effusion, possible empyema, status post pigtail catheter placement by interventional radiology 2. Positive COVID-19 by PCR 3. Shortness of breath for 2 months 4. History of CAD 5. History of hypertension 6. History of hyperlipidemia 7. History of gout 8. History of prostate disorder 9. Never smoker 10. Moderate EtOH use Plan: The patient was seen and examined at the bedside. Chart/diagnostics were reviewed. The case was discussed in detail with Dr. Post. The patient is currently in no distress, remains afebrile, oxygen saturations in the mid 90s on room air. The patient states he feels significantly better since pigtail catheter placement which has drained approximately 1100 mL cloudy, milky yellow fluid since placement. White blood cell count decreased. Continue IV antibiotics per pulmonology. Incentive spirometry ordered and should be encouraged. Keep pigtail catheter to continuous wall suction. Will monitor daily x-rays. Medical management of other comorbidities per primary care. More recommendations to follow. Thank you Dr. Payton for this consult. Time with Patient: Greater than 30
--- NOTE | 2020-10-02 11:42 | XR ---
EXAMINATION TYPE: XR chest 1V portable DATE OF EXAM: 10/02/2020 CLINICAL HISTORY: Post right pleural drainage catheter placement. TECHNIQUE: Single AP portable frontal view of the chest is obtained. COMPARISON: Chest x-ray from one day earlier. CT chest 2 days ago. FINDINGS: New Right basilar pleural drainage catheter. Improved right basilar opacity. Background ch ronic parenchymal change. Left lung remains clear. Cardiac silhouette size within normal limits. Osse ous structures are demineralized. IMPRESSION: New right basilar pleural drainage catheter with improved right-sided effusion. Chronic p arenchymal changes with patchy right basilar atelectasis and/or infiltrate noted after pleural draina ge catheter placement.
[2020-10-02 12:54] VITALS: BMI 26.2
--- NOTE | 2020-10-02 17:26 | P.PN ---
Subjective Progress Note Date: 10/02/20 Principal diagnosis: COVID-19 infection, loculated fluid collection in the right posterior chest, empyema 80-year-old male, who presents to the emergency department, on September 30, complaining of chest pain, and weakness. The patient states she has not been feeling well for a number of months now, maybe 2. The patient denies any pain. He is coughing. He feels like his breathing is impaired. He's also had significant weight loss over the last couple of months. There is no fever or chills. He denies any nausea, vomiting, diarrhea, or abdominal pain. He denies any genitourinary complaints. The patient was seen in the emergency room, in ER room 19. The patient was on room air. He was not receiving any IV fluids. Chest x-ray revealed a masslike infiltrate in the right lung. On computed tomography scan, there is a loculated fluid collection in the right lung, which is quite extensive. White count 28.9, hemoglobin 11.4, hematocrit 36.1, platelet count 489,000. PT, INR, PTT is normal. Sodium 133, potassium 4.9, chlorides 99, CO2 23, anion gap 11, BUN 37, creatinine 1.52. AST 95, and OT 141. N-terminal proBNP 1420. Urine is essentially negative. Coronavirus testing was positive. On 10/02/2020 patient is status post right chest pigtail chest tube placement into the loculated parapneumonic pleural effusion with drainage of approximately 1100 cc of purulent drainage, pleural fluid analysis showed LDH of greater than 4500, 94,000 . Nucleated cells, 91 of PMNs, glucose of less than 4 and fluid total protein of 3800 consistent with exudative fluid related to empyema. Currently sitting up in a chair, on room air, pulse ox of 95%, he is afebrile, he does get short of breath with exertion, but seems to be in no acute distress, no chest discomfort, of note patient did test positive for COVID-19. Not requiring any supplemental oxygen, today's chest x-ray shows improved right sided pleural effusion, and patchy right basilar atelectasis and/or infiltrate. Today's labs show improving leukocytosis, with white blood cell count down to 16.5, hemoglobin is 10.4, electrolytes and renal profile were improved on today's labs, with BUN of 27 creatinine is 1.08. The patient continues to be on Zosyn for antibiotic coverage, Objective - Vital Signs Vital signs: Vital Signs Temp 97.8 F 10/02/20 13:32 Pulse 65 10/02/20 13:32 Resp 19 10/02/20 13:32 BP 96/56 10/02/20 13:32 Pulse Ox 95 10/02/20 13:32 Intake & Output 10/01/20 10/02/20 10/02/20 18:59 06:59 18:59 Intake Total 800 Output Total 200 750 Balance -200 50 Weight 87.543 kg 87.543 kg Intake: Intake, IV Titration 500 Amount Piperacillin-Tazobactam 3 100 .375 gm In Sodium Chloride 0.9% 100 ml @ 25 mls/hr IVPB Q8H [facility] Rx#: [id number] Sodium Chloride 0.9% 1, 400 000 ml @ 100 mls/hr IV . Q10H [facility] Rx#:[id number] Oral 300 Output: Drainage 200 500 Right Back 200 500 Urine 250 - Exam GENERAL EXAM: Alert, active, comfortable in no apparent distress. HEAD: Normocephalic/atraumatic. EYES: Normal reaction of pupils, equal size. Conjunctiva pink, sclera white. NOSE: Clear with pink turbinates. THROAT: No erythema or exudates. NECK: No masses, no JVD, no thyroid enlargement, no adenopathy. CHEST: No chest wall deformity. Symmetrical expansion. Right-sided pigtail chest tube catheter in place connected to Pleur-evac, with 1100 mL of purulent pleural drainage in the Pleur-evac, no air leak noted LUNGS: Equal air entry with no crackles, wheeze, rhonchi or dullness. CVS: Regular rate and rhythm, normal S1 and S2, no gallops, no murmurs, no rubs ABDOMEN: Soft, nontender. No hepatosplenomegaly, normal bowel sounds, no guarding or rigidity. EXTREMITIES: No clubbing, no edema, no cyanosis, 2+ pulses and upper and lower extremities. MUSCULOSKELETAL: Muscle strength and tone normal. SPINE: No scoliosis or deformity SKIN: No rashes CENTRAL NERVOUS SYSTEM: Alert and oriented -3. No focal deficits, tone is normal in all 4 extremities. PSYCHIATRIC: Alert and oriented -3. Appropriate affect. Intact judgment and insight. - Labs CBC & Chem 7: 10/02/20 07:05 10/02/20 07:05 Labs: Abnormal Lab Results - Last 24 Hours (Table) 10/02/20 10/02/20 Range/Units 07:05 07:05 WBC 16.5 H (3.8-10.6) k/uL RBC 3.33 L (4.30-5.90) m/uL Hgb 10.4 L (13.0-17.5) gm/dL Hct 31.0 L (39.0-53.0) % Sodium 136 L (137-145) mmol/L BUN 27 H (9-20) mg/dL AST 106 H (17-59) U/L ALT 141 H (4-49) U/L Alkaline Phosphatase 141 H (38-126) U/L Total Protein 5.7 L (6.3-8.2) g/dL Albumin 2.5 L (3.5-5.0) g/dL Microbiology - Last 24 Hours (Table) 10/01/20 15:15 Gram Stain - Preliminary Pleural Fluid Body Fluid Culture - Preliminary 10/01/20 15:15 Acid Fast Bacilli Culture - Preliminary Pleural Fluid 10/01/20 15:15 Fungal Culture - Preliminary Pleural Fluid 10/01/20 15:15 Anaerobic Culture - Preliminary Pleural Fluid 09/30/20 17:59 Blood Culture - Preliminary Blood No Growth after 24 hours 09/30/20 17:55 Blood Culture - Preliminary Blood No Growth after 24 hours Assessment and Plan Plan: Assessment: #1. Large loculated right chest pleural effusion, parapneumonic, status post insertion of right pleural Chest tube catheter with drainage of 1100 mL of purulent drainage, pleural fluid analysis reveals empyema, cultures are currently pending, patient is covered with Zosyn #2. COVID-19 infection without lung infiltrates, and without hypoxemia #3. Acute kidney injury improving with IV hydration #4. History of coronary artery disease #5. Hypertension #6. Hyperlipidemia #7. Gout #8. Prostate disorder #9. Nonsmoker Plan: Continue Zosyn CT surgery has been consulted Today's chest x-ray shows significant improvement in the appearance of right- sided pleural fluid collection related to empyema COVID-19 PCR was positive and patient has COVID-19 infection without lung infiltrates or hypoxia Prophylactic anticoagulation in the form of Lovenox 40 mg daily Follow daily d-dimer Inflammatory markers will be obtained No need for Decadron in the absence of lung infiltrates or hypoxia We'll continue to follow his clinical course I performed a history & physical examination of the patient and discussed their management with my nurse practitioner, Charley Prajapati. I reviewed the nurse practitioner's note and agree with the documented findings and plan of care. Lung sounds are positive for diminished breath sounds. The findings and the impression was discussed with the patient. I attest to the documentation by the nurse practitioner. Time with Patient: Less than 30
[2020-10-02] MEDS: SODIUM CHLORIDE 0.9% 1,000 ML IV SCH (17:40)
[2020-10-02] MEDS: ENOXAPARIN 40 MG/0.4 ML SYRINGE SQ SCH (18:02)
[2020-10-02] MEDS: atenoloL 25 MG TAB PO SCH (20:21)
[2020-10-02] MEDS: lisinopriL 20 MG TAB PO SCH (20:21)
[2020-10-02] MEDS: allopurinoL 300 MG TAB PO SCH (20:21)
[2020-10-02] MEDS: FINASTERIDE 5 MG TAB PO SCH (20:21)
[2020-10-02] MEDS: amLODIPine 10 MG TAB PO SCH (20:21)
[2020-10-02] MEDS: ATORVASTATIN 10 MG TAB PO SCH (20:21)
[2020-10-02] MEDS: ASPIRIN 81 MG PO SCH (20:21)
[2020-10-02] MEDS ORDERED: ONDANSETRON 4 MG/2 ML VIAL IVP PRN (22:24)
[2020-10-02] MEDS: CALCIUM CARBONATE 500 MG CHEWABLE PO PRN (23:13)
[2020-10-03] MEDS: PIPERACILLIN-TAZOBACTAM 3.375 GM in SODIUM CHLORIDE 0.9% 100 ML IVPB SCH ×3 (05:35→20:37)
--- NOTE | 2020-10-03 07:52 | XR ---
EXAMINATION TYPE: XR chest 1V portable DATE OF EXAM: 10/03/2020 HISTORY: Shortness of breath. COMPARISON: 10/02/2020 TECHNIQUE: Single view of the chest is submitted. FINDINGS: Right basilar pleural catheter is in place. No evidence for pneumothorax. Patchy right basilar densit y is unchanged. The heart is stable. Hilar and mediastinal structures are within normal limits. Degenerative changes are seen of the dorsal spine. IMPRESSION: 1. Overall stable chest.
[2020-10-03 08:02] LABS: African American GFR (CKD) 74 (>60 ml/min/1.73 sqM); Anion Gap 6 mmol/L; Blood Urea Nitrogen 21 mg/dL (9-20); Calcium 9.1 mg/dL (8.4-10.2); Carbon Dioxide 27 mmol/L (22-30); Chloride 103 mmol/L (98-107); Glucose 84 mg/dL (74-99); LDH 349 U/L (313-618); Non-African American GFR(CKD) 64 (>60 ml/min/1.73 sqM); Potassium 4.6 mmol/L (3.5-5.1); Sodium 136 mmol/L (137-145)
[2020-10-03 08:19] LABS: C Reactive Protein 18.7 mg/dL (<1.0)
--- NOTE | 2020-10-03 08:19 | P.PN ---
Subjective Principal diagnosis: Pleural effusion The patient is 80-year-old white male with pleural effusion and supposed Covid positivity. The patient has not chest tube and is feeling much better. Objective - Vital Signs Vital signs: Vital Signs Temp 98.0 F 10/03/20 05:09 Pulse 61 10/03/20 05:09 Resp 19 10/03/20 01:00 BP 102/50 10/03/20 05:09 Pulse Ox 94 L 10/03/20 05:09 Intake & Output 10/02/20 10/03/20 10/03/20 18:59 06:59 18:59 Output Total 300 2180 Balance -300 -2180 Weight 87.543 kg Output: Chest Tube Drainage 80 Right Posterior Chest 80 Drainage 300 Right Back 300 Urine 2100 Other: # Voids 3 - Constitutional General appearance: Present: average body habitus - EENT Eyes: Absent: abnormal pupil - Neck Neck: Absent: lymphadenopathy - Respiratory Respiratory: right: diminished - Cardiovascular Rhythm: regular Heart sounds: normal: S1, S2 Abnormal Heart Sounds: Absent: S3 Gallop - Gastrointestinal General gastrointestinal: Present: soft. Absent: tenderness - Integumentary Integumentary: Absent: normal - Labs CBC & Chem 7: 10/02/20 07:05 10/02/20 07:05 Labs: Abnormal Lab Results - Last 24 Hours (Table) 10/02/20 10/02/20 10/02/20 Range/Units 07:05 07:05 07:05 WBC 16.5 H (3.8-10.6) k/uL RBC 3.33 L (4.30-5.90) m/uL Hgb 10.4 L (13.0-17.5) gm/dL Hct 31.0 L (39.0-53.0) % D-Dimer (<0.60) mg/L FEU Sodium 136 L (137-145) mmol/L BUN 27 H (9-20) mg/dL AST 106 H (17-59) U/L ALT 141 H (4-49) U/L Alkaline Phosphatase 141 H (38-126) U/L Total Protein 5.7 L (6.3-8.2) g/dL Albumin 2.5 L (3.5-5.0) g/dL Procalcitonin 0.31 H (0.02-0.09) ng/mL 10/03/20 Range/Units 06:42 WBC (3.8-10.6) k/uL RBC (4.30-5.90) m/uL Hgb (13.0-17.5) gm/dL Hct (39.0-53.0) % D-Dimer 4.00 H (<0.60) mg/L FEU Sodium (137-145) mmol/L BUN (9-20) mg/dL AST (17-59) U/L ALT (4-49) U/L Alkaline Phosphatase (38-126) U/L Total Protein (6.3-8.2) g/dL Albumin (3.5-5.0) g/dL Procalcitonin (0.02-0.09) ng/mL Microbiology - Last 24 Hours (Table) 09/30/20 17:59 Blood Culture - Preliminary Blood No Growth after 48 hours 09/30/20 17:55 Blood Culture - Preliminary Blood No Growth after 48 hours 10/01/20 15:15 Acid Fast Bacilli Smear - Final Pleural Fluid Acid Fast Bacilli Culture - Preliminary 10/01/20 15:15 Gram Stain - Preliminary Pleural Fluid Body Fluid Culture - Preliminary Assessment and Plan (1) Pleural effusion Current Visit: Yes Status: Acute Code(s): J90 - PLEURAL EFFUSION, NOT ELSEWHERE CLASSIFIED SNOMED Code(s): 55200257 Plan: Consult pulmonology for probable thoracentesis. Check CBC and CMP in a.m. Continue current treatment. Fluid studies are pending. Prognosis is guarded.
--- NOTE | 2020-10-03 08:22 | P.PN ---
Subjective Principal diagnosis: Pleural effusion The patient is 80-year-old white male with pleural effusion and supposed Covid positivity. The patient has not chest tube and is feeling much better. Objective - Vital Signs Vital signs: Vital Signs Temp 98.0 F 10/03/20 05:09 Pulse 61 10/03/20 05:09 Resp 19 10/03/20 01:00 BP 102/50 10/03/20 05:09 Pulse Ox 94 L 10/03/20 05:09 Intake & Output 10/02/20 10/03/20 10/03/20 18:59 06:59 18:59 Output Total 300 2180 Balance -300 -2180 Weight 87.543 kg Output: Chest Tube Drainage 80 Right Posterior Chest 80 Drainage 300 Right Back 300 Urine 2100 Other: # Voids 3 - Constitutional General appearance: Present: average body habitus - Respiratory Respiratory: right: diminished - Cardiovascular Heart sounds: normal: S1, S2 Abnormal Heart Sounds: Absent: S3 Gallop - Gastrointestinal General gastrointestinal: Present: soft. Absent: tenderness - Musculoskeletal Musculoskeletal: Present: generalized weakness - Psychiatric Psychiatric: Present: A&O x's 3, appropriate affect - Labs CBC & Chem 7: 10/02/20 07:05 10/03/20 06:42 Labs: Abnormal Lab Results - Last 24 Hours (Table) 10/02/20 10/02/20 10/02/20 Range/Units 07:05 07:05 07:05 WBC 16.5 H (3.8-10.6) k/uL RBC 3.33 L (4.30-5.90) m/uL Hgb 10.4 L (13.0-17.5) gm/dL Hct 31.0 L (39.0-53.0) % D-Dimer (<0.60) mg/L FEU Sodium 136 L (137-145) mmol/L BUN 27 H (9-20) mg/dL AST 106 H (17-59) U/L ALT 141 H (4-49) U/L Alkaline Phosphatase 141 H (38-126) U/L C-Reactive Protein (<1.0) mg/dL Total Protein 5.7 L (6.3-8.2) g/dL Albumin 2.5 L (3.5-5.0) g/dL Procalcitonin 0.31 H (0.02-0.09) ng/mL 10/03/20 10/03/20 Range/Units 06:42 06:42 WBC (3.8-10.6) k/uL RBC (4.30-5.90) m/uL Hgb (13.0-17.5) gm/dL Hct (39.0-53.0) % D-Dimer 4.00 H (<0.60) mg/L FEU Sodium 136 L (137-145) mmol/L BUN 21 H (9-20) mg/dL AST (17-59) U/L ALT (4-49) U/L Alkaline Phosphatase (38-126) U/L C-Reactive Protein 18.7 H (<1.0) mg/dL Total Protein (6.3-8.2) g/dL Albumin (3.5-5.0) g/dL Procalcitonin (0.02-0.09) ng/mL Microbiology - Last 24 Hours (Table) 09/30/20 17:59 Blood Culture - Preliminary Blood No Growth after 48 hours 09/30/20 17:55 Blood Culture - Preliminary Blood No Growth after 48 hours 10/01/20 15:15 Acid Fast Bacilli Smear - Final Pleural Fluid Acid Fast Bacilli Culture - Preliminary 10/01/20 15:15 Gram Stain - Preliminary Pleural Fluid Body Fluid Culture - Preliminary Assessment and Plan (1) Pleural effusion Current Visit: Yes Status: Acute Code(s): J90 - PLEURAL EFFUSION, NOT ELSEWHERE CLASSIFIED SNOMED Code(s): 19838228 Plan: Consult pulmonology for probable thoracentesis. Check CBC and CMP in a.m. Continue current treatment. Fluid studies are pending. Prognosis is guarded. Increase ambulation.
[2020-10-03] MEDS: SODIUM CHLORIDE 0.9% 1,000 ML IV SCH ×2 (08:32→20:37)
[2020-10-03] MEDS: PANTOPRAZOLE 40 MG TABLET PO SCH (08:32)
[2020-10-03] MEDS: ENOXAPARIN 40 MG/0.4 ML SYRINGE SQ SCH ×2 (08:32→20:37)
--- NOTE | 2020-10-03 09:11 | P.PN ---
Subjective Progress Note Date: 10/03/20 Principal diagnosis: Large loculated right-sided pleural effusion, possible empyema, status post pigtail catheter placement by interventional radiology, positive COVID-19 by PCR. Previous medical history of shortness of breath for 2 months, CAD, hypertension, hyperlipidemia, gout, prostate disorder, never smoker, moderate EtOH use The patient is currently laying in bed in no acute distress. Denies any pain. Denies shortness of breath except with increased activity, states he feels significantly better since pigtail catheter placed. Right-sided pigtail catheter remains in place and connected to atrium with continuous wall suction, output approximately 200 mL in the last 24 hours. Patient remains afebrile, oxygenating well on room air, has been ambulatory in the room without significant difficulty. Preliminary Gram stain on pericardial fluid demonstrating gram-negative bacilli, remains on IV Zosyn. No other new concerns. Objective - Vital Signs Vital signs: Vital Signs Temp 98.0 F 10/03/20 05:09 Pulse 61 10/03/20 05:09 Resp 19 10/03/20 01:00 BP 102/50 10/03/20 05:09 Pulse Ox 94 L 10/03/20 05:09 Intake & Output 10/02/20 10/03/20 10/03/20 18:59 06:59 18:59 Output Total 300 2180 Balance -300 -2180 Weight 87.543 kg Output: Chest Tube Drainage 80 Right Posterior Chest 80 Drainage 300 Right Back 300 Urine 2100 Other: # Voids 3 - Exam CONSTITUTIONAL: Appears comfortable, cooperative, no acute distress RESPIRATORY: Lungs sounds diminished bilaterally, right greater than left. Respirations even, nonlabored. Currently on room air with oxygen saturation 94%. Able to achieve 1500 mL on incentive spirometry. Strong cough. CARDIOVASCULAR: S1, S2 present. Regular rate and rhythm. Palpable peripheral pulses bilaterally. No edema present. No calf pain or tenderness noted. SCDs present. GASTROINTESTINAL: Abdomen soft, nontender, nondistended. Active bowel sounds present 4 quadrants. Tolerating diet. GENITOURINARY: Continues to void clear, yellow urine INTEGUMENTARY: Skin is warm and dry with evidence of good perfusion. NEUROLOGIC: Cranial nerves II through XII intact MUSKULOSKELETAL: Able to move all extremities, strength equal bilaterally, gait normal PSYCHIATRIC: Alert and oriented to person place and time, appropriate affect, intact judgment and insight INVASIVE LINES AND TUBES: Right pigtail catheter present and connected to wall suction, no air leaks present. Right pigtail catheter with 80 mL of cloudy yellow drainage overnight, 200 mL last 24 hours. - Allied health notes Allied health notes reviewed: nursing - Labs CBC & Chem 7: 10/02/20 07:05 10/03/20 06:42 Labs: Abnormal Lab Results - Last 24 Hours (Table) 10/02/20 10/02/20 10/03/20 Range/Units 07:05 07:05 06:42 D-Dimer (<0.60) mg/L FEU Sodium 136 L 136 L (137-145) mmol/L BUN 27 H 21 H (9-20) mg/dL AST 106 H (17-59) U/L ALT 141 H (4-49) U/L Alkaline Phosphatase 141 H (38-126) U/L C-Reactive Protein 18.7 H (<1.0) mg/dL Total Protein 5.7 L (6.3-8.2) g/dL Albumin 2.5 L (3.5-5.0) g/dL Procalcitonin 0.31 H (0.02-0.09) ng/mL 10/03/20 Range/Units 06:42 D-Dimer 4.00 H (<0.60) mg/L FEU Sodium (137-145) mmol/L BUN (9-20) mg/dL AST (17-59) U/L ALT (4-49) U/L Alkaline Phosphatase (38-126) U/L C-Reactive Protein (<1.0) mg/dL Total Protein (6.3-8.2) g/dL Albumin (3.5-5.0) g/dL Procalcitonin (0.02-0.09) ng/mL Microbiology - Last 24 Hours (Table) 09/30/20 17:59 Blood Culture - Preliminary Blood No Growth after 48 hours 09/30/20 17:55 Blood Culture - Preliminary Blood No Growth after 48 hours 10/01/20 15:15 Acid Fast Bacilli Smear - Final Pleural Fluid Acid Fast Bacilli Culture - Preliminary 10/01/20 15:15 Gram Stain - Preliminary Pleural Fluid Body Fluid Culture - Preliminary - Imaging and Cardiology Chest x-ray: report reviewed, image reviewed Assessment and Plan Assessment: 1. Large loculated right-sided pleural effusion, likely empyema, status post pigtail catheter placement by interventional radiology 2. Positive COVID-19 by PCR 3. Shortness of breath for 2 months 4. History of CAD 5. History of hypertension 6. History of hyperlipidemia 7. History of gout 8. History of prostate disorder 9. Never smoker 10. Moderate EtOH use Plan: 1. Continue pigtail catheter to continuous wall suction. Continue to monitor output 2. Encourage incentive spirometry is 10 times every hour while awake 3. Increase activity, ambulate as tolerated 4. Continue IV antibiotics per pulmonology 5. Will monitor daily x-rays 6. Covid management per pulmonology/primary care 7. GI/DVT prophylaxis 8. No acute surgical intervention necessary at this time. More recommendations to follow Time with Patient: Greater than 30
[2020-10-03 10:53] LABS: Basophils # (A) 0.03 X 10*3/uL (0.00-0.10); Basophils % (A) 0.3 %; Eosinophils # (A) 0.16 X 10*3/uL (0.04-0.35); Eosinophils % (A) 1.5 %; HCT 30.4 % (39.6-50.0); HGB 9.8 g/dL (13.0-17.0); Lymphocytes # (A) 1.43 X 10*3/uL (0.90-5.00); Lymphocytes % (A) 13.5 %; MCH 30.2 pg (27.0-32.0); MCHC 32.2 g/dL (32.0-37.0); MCV 93.5 fL (80.0-97.0); Mean Platelet Volume 10.3 fL (9.5-12.2); Monocytes # (A) 0.63 X 10*3/uL (0.20-1.00); Neutrophils # (A) 8.25 X 10*3/uL (1.80-7.70); Neutrophils % (A) 78.1 %; Platelet Count 431 X 10*3/uL (140-440); RBC 3.25 X 10*6/uL (4.40-5.60); RDW 13.4 % (11.5-14.5); WBC 10.56 X 10*3/uL (4.50-10.00)
[2020-10-03] MEDS: CALCIUM CARBONATE 500 MG CHEWABLE PO PRN (12:59)
--- NOTE | 2020-10-03 17:44 | P.PN ---
Subjective Progress Note Date: 10/03/20 Principal diagnosis: COVID-19 infection, loculated fluid collection in the right posterior chest, empyema 80-year-old male, who presents to the emergency department, on September 30, complaining of chest pain, and weakness. The patient states she has not been feeling well for a number of months now, maybe 2. The patient denies any pain. He is coughing. He feels like his breathing is impaired. He's also had significant weight loss over the last couple of months. There is no fever or chills. He denies any nausea, vomiting, diarrhea, or abdominal pain. He denies any genitourinary complaints. The patient was seen in the emergency room, in ER room 19. The patient was on room air. He was not receiving any IV fluids. Chest x-ray revealed a masslike infiltrate in the right lung. On computed tomography scan, there is a loculated fluid collection in the right lung, which is quite extensive. White count 28.9, hemoglobin 11.4, hematocrit 36.1, platelet count 489,000. PT, INR, PTT is normal. Sodium 133, potassium 4.9, chlorides 99, CO2 23, anion gap 11, BUN 37, creatinine 1.52. AST 95, and OT 141. N-terminal proBNP 1420. Urine is essentially negative. Coronavirus testing was positive. On 10/02/2020 patient is status post right chest pigtail chest tube placement into the loculated parapneumonic pleural effusion with drainage of approximately 1100 cc of purulent drainage, pleural fluid analysis showed LDH of greater than 4500, 94,000 . Nucleated cells, 91 of PMNs, glucose of less than 4 and fluid total protein of 3800 consistent with exudative fluid related to empyema. Currently sitting up in a chair, on room air, pulse ox of 95%, he is afebrile, he does get short of breath with exertion, but seems to be in no acute distress, no chest discomfort, of note patient did test positive for COVID-19. Not requiring any supplemental oxygen, today's chest x-ray shows improved right sided pleural effusion, and patchy right basilar atelectasis and/or infiltrate. Today's labs show improving leukocytosis, with white blood cell count down to 16.5, hemoglobin is 10.4, electrolytes and renal profile were improved on today's labs, with BUN of 27 creatinine is 1.08. The patient continues to be on Zosyn for antibiotic coverage, On 10/03/2020 patient seen in follow-up on medical surgical floor, he is resting in bed, currently on room air, denies any worsening dyspnea, room air pulse ox is 96-97%, he is afebrile, hemodynamically he is stable, breathing is nonlabored, he has a right chest pigtail chest tube in place connected to the Pleur-evac, and there has been an additional 100-150 ML of serous fluid in the last 24 hours. His chest x-ray shows right basilar pleural catheter in place, no evidence of pneumothorax, and patchy right basilar density is unchanged. Pleural fluid cytology shows no cytologically malignant cells, and was positive for dense acute inflammatory cells consistent with empyema. Cultures are negative thus far. Patient remains on Zosyn for empiric antibiotic coverage. Today's labs have been reviewed Objective - Vital Signs Vital signs: Vital Signs Temp 97.8 F 10/03/20 13:40 Pulse 67 10/03/20 13:40 Resp 16 10/03/20 13:40 BP 111/69 10/03/20 13:40 Pulse Ox 96 10/03/20 13:40 Intake & Output 10/02/20 10/03/20 10/03/20 18:59 06:59 18:59 Output Total 300 2180 600 Balance -300 -2180 -600 Weight 87.543 kg 87.543 kg Output: Chest Tube Drainage 80 Right Posterior Chest 80 Drainage 300 Right Back 300 Urine 2100 600 Other: # Voids 3 1 - Exam GENERAL EXAM: Alert, very pleasant, 80-year-old white male, on room air, with a pulse ox between 96-97% comfortable in no apparent distress. HEAD: Normocephalic/atraumatic. EYES: Normal reaction of pupils, equal size. Conjunctiva pink, sclera white. NOSE: Clear with pink turbinates. THROAT: No erythema or exudates. NECK: No masses, no JVD, no thyroid enlargement, no adenopathy. CHEST: No chest wall deformity. Symmetrical expansion. Right-sided pigtail chest tube catheter in place connected to Pleur-evac, with 1200 mL of purulent pleural drainage in the Pleur-evac, no air leak noted LUNGS: Equal air entry with no crackles, wheeze, rhonchi or dullness. CVS: Regular rate and rhythm, normal S1 and S2, no gallops, no murmurs, no rubs ABDOMEN: Soft, nontender. No hepatosplenomegaly, normal bowel sounds, no guarding or rigidity. EXTREMITIES: No clubbing, no edema, no cyanosis, 2+ pulses and upper and lower extremities. MUSCULOSKELETAL: Muscle strength and tone normal. SPINE: No scoliosis or deformity SKIN: No rashes CENTRAL NERVOUS SYSTEM: Alert and oriented -3. No focal deficits, tone is normal in all 4 extremities. PSYCHIATRIC: Alert and oriented -3. Appropriate affect. Intact judgment and insight. - Labs CBC & Chem 7: 10/03/20 06:42 10/03/20 06:42 Labs: Abnormal Lab Results - Last 24 Hours (Table) 10/02/20 10/03/20 10/03/20 Range/Units 07:05 06:42 06:42 WBC 10.56 H (4.50-10.00) X 10*3/uL RBC 3.25 L (4.40-5.60) X 10*6/uL Hgb 9.8 L (13.0-17.0) g/dL Hct 30.4 L (39.6-50.0) % Immature Gran # 0.06 H (0.00-0.04) X 10*3/uL Neutrophils # 8.25 H (1.80-7.70) X 10*3/uL D-Dimer (<0.60) mg/L FEU Sodium 136 L (137-145) mmol/L BUN 21 H (9-20) mg/dL C-Reactive Protein 18.7 H (<1.0) mg/dL Procalcitonin 0.31 H (0.02-0.09) ng/mL 10/03/20 Range/Units 06:42 WBC (4.50-10.00) X 10*3/uL RBC (4.40-5.60) X 10*6/uL Hgb (13.0-17.0) g/dL Hct (39.6-50.0) % Immature Gran # (0.00-0.04) X 10*3/uL Neutrophils # (1.80-7.70) X 10*3/uL D-Dimer 4.00 H (<0.60) mg/L FEU Sodium (137-145) mmol/L BUN (9-20) mg/dL C-Reactive Protein (<1.0) mg/dL Procalcitonin (0.02-0.09) ng/mL Microbiology - Last 24 Hours (Table) 10/01/20 15:15 Gram Stain - Preliminary Pleural Fluid Body Fluid Culture - Preliminary 09/30/20 17:59 Blood Culture - Preliminary Blood No Growth after 48 hours 09/30/20 17:55 Blood Culture - Preliminary Blood No Growth after 48 hours 10/01/20 15:15 Acid Fast Bacilli Smear - Final Pleural Fluid Acid Fast Bacilli Culture - Preliminary Assessment and Plan Plan: Assessment: #1. Large loculated right chest pleural effusion, parapneumonic, status post i nsertion of right pleural Chest tube catheter with drainage of 1100 mL of purulent drainage, pleural fluid analysis reveals empyema, cultures are currently pending, patient is covered with Zosyn, cytology showed dense acute inflammatory cells consistent with empyema, and no malignant cells. Pleural fluid cultures on pending, #2. COVID-19 infection without lung infiltrates, and without hypoxemia #3. Acute kidney injury improving with IV hydration #4. History of coronary artery disease #5. Hypertension #6. Hyperlipidemia #7. Gout #8. Prostate disorder #9. Nonsmoker Plan: Continue antibiotics His labs have been noted No worsening dyspnea or hypoxia Continue GI and DVT prophylaxis, continue Lovenox Inflammatory markers have been noted, d-dimer has been noted, Lovenox will be increased to 40 mg twice daily No need for steroids Await final cultures of the pleural fluid CT surgery is following I performed a history & physical examination of the patient and discussed their management with my nurse practitioner, Charley Prajapati. I reviewed the nurse practitioner's note and agree with the documented findings and plan of care. Lung sounds are positive for diminished breath sounds. The findings and the impression was discussed with the patient. I attest to the documentation by the nurse practitioner. Time with Patient: Less than 30
[2020-10-03] MEDS: ASPIRIN 81 MG PO SCH (20:37)
[2020-10-03] MEDS: amLODIPine 10 MG TAB PO SCH (20:37)
[2020-10-03] MEDS: FINASTERIDE 5 MG TAB PO SCH (20:37)
[2020-10-03] MEDS: ATORVASTATIN 10 MG TAB PO SCH (20:37)
[2020-10-03] MEDS: allopurinoL 300 MG TAB PO SCH (20:37)
[2020-10-03] MEDS: lisinopriL 20 MG TAB PO SCH (20:38)
[2020-10-03] MEDS: atenoloL 25 MG TAB PO SCH (20:38)
[2020-10-04] MEDS: PIPERACILLIN-TAZOBACTAM 3.375 GM in SODIUM CHLORIDE 0.9% 100 ML IVPB SCH ×3 (05:35→19:51)
--- NOTE | 2020-10-04 07:26 | XR ---
EXAMINATION TYPE: XR chest 1V portable DATE OF EXAM: 10/04/2020 COMPARISON: Chest x-ray 10/03/2020 HISTORY: Chest tube, empyema TECHNIQUE: Single frontal view of the chest is obtained. FINDINGS: Posterior right-sided pigtail catheter is again noted. There is no evident pneumothorax. M inimal patchy basilar density persists. Cardiac mediastinal silhouette is stable. IMPRESSION: Basilar atelectasis versus pneumonia and minimal residual effusion, stable chest tube
--- NOTE | 2020-10-04 07:34 | CONS ---
CONSULTATION DATE OF SERVICE: 10/03/2020. REASON FOR CONSULT: Empyema. HISTORY OF PRESENT ILLNESS: The patient is a 80-year-old male presenting to the ER a few days ago on September 30 for evaluation of chest pain and weakness. The patient's symptoms have been going on for the last 2 months. The patient has been not feeling well with generalized weakness that has been progressively getting worse. Has been complaining of shortness of breath and did have a right-sided chest pain, more of a dull aching, worse with taking a deep breath, intensity 4-5 out of 10 and no radiation. The patient also has a cough with productive sputum. No hemoptysis. Denies high-grade fever or chills though. No vomiting. Did mention occasional choking on the food and no diarrhea. With these symptoms, the patient was evaluated. On arrival to the ER the patient did have a chest x-ray that did show evidence of masslike infiltration in the right lung. Subsequently the patient did have a CT of the chest which did show loculated fluid collection right lung, which is quite extensive. The patient is status post right chest chest tube placement by Interventional Radiology with drainage of approximately 1100 mL purulent fluid. Cultures are now showing Gram-negative bacilli. Patient is being treated with Zosyn. Infectious Disease was consulted today for further management of antibiotic therapy. The patient did mention feeling slightly better since being admitted to the hospital. The patient remains to be afebrile through this hospital stay. The patient did have a white count 28.9 on admission and is down to 10.56. His urine has been negative. Pleural fluid was cloudy with 94,000 WBC and LDH more than 4500. The patient also has a positive COVID test. REVIEW OF SYSTEMS: Positive points have been mentioned in HPI. Rest of the systems are negative. PAST MEDICAL HISTORY: Coronary artery disease, hypertension, hyperlipidemia, history of prostate disorder and gout. PAST SURGICAL HISTORY: Appendectomy. SOCIAL HISTORY: Denies smoking. Did admit to daily drinks and marijuana use. FAMILY HISTORY: No pertinent findings noticed. ALLERGIES: No known drug allergies. MEDICATIONS: The patient is currently on Zyloprim, Norvasc, aspirin, Tenormin, Lipitor, Tums, Lovenox, Proscar, Zestril, Zofran, Protonix, and IV fluid. PHYSICAL EXAMINATION: Blood pressure is 104/64, pulse of 60, temperature 97.8. He is 95% on room air. General description is an elderly male lying in bed in no distress. No tachypnea or accessory muscles of respiration use. HEENT examination: Pallor. No scleral icterus. Oral mucous membranes dry. NECK: Trachea central. No thyromegaly. LUNGS unlabored breathing, decreased breath sounds in the base, with no wheeze. HEART S1, S2. Regular rate and rhythm. ABDOMEN: Soft, no tenderness. No guarding. No rigidity. EXTREMITIES: No edema of the feet. Skin examination: No rash or mass palpable. NEUROLOGICAL: Patient is awake, alert, oriented times three. Mood and affect normal. LABS: Hemoglobin 11.1, white count 10.5, admission white count was 28.9, BUN of 21, creatinine 1.09. Liver enzymes are elevated. Procalcitonin 0.31. DIAGNOSTIC IMPRESSION AND PLAN: Patient with right-sided loculated fluid with evidence of empyema, status post tube placement, drainage of 1100 mL of purulent fluid showing Gram-negative. The final ID sensitivities pending. PLAN: 1. The patient to continue with the Zosyn 3.75 g q.8 hours. 2. Will need a PICC line for outpatient IV antibiotic therapy on this pathogen. 3. We will follow on his clinical condition and further adjust medication if needed. Thank you for this consultation. Will follow this patient along with you. MMELLIOTL / MALAN: [id number] /
--- NOTE | 2020-10-04 08:08 | P.PN ---
Subjective Progress Note Date: 10/04/20 Principal diagnosis: Large loculated right-sided pleural effusion, empyema, status post pigtail catheter placement by interventional radiology, positive COVID-19 by PCR. Previous medical history of shortness of breath for 2 months, CAD, hypertension, hyperlipidemia, gout, prostate disorder, never smoker, moderate EtOH use The patient is currently sitting up in bed in no acute distress. Denies any pain, shortness of breath, states he feels significantly better since pigtail catheter placed, has been up ambulating in room without assistance. He is actively using incentive spirometry and coughing up clear phlegm. Right-sided pigtail catheter remains in place and connected to atrium with continuous wall suction, output approximately 300 mL in the last 24 hours. Patient remains afebrile, oxygenating well on room air. Preliminary Gram stain on pleural fluid demonstrating gram-negative bacilli, pathology demonstrates dense acute inflammatory cells c/w empyema, remains on IV Zosyn. No other new concerns. Objective - Vital Signs Vital signs: Vital Signs Temp 97.7 F 10/04/20 05:03 Pulse 64 10/04/20 05:03 Resp 17 10/04/20 05:03 BP 98/58 10/04/20 05:03 Pulse Ox 93 L 10/04/20 05:03 Intake & Output 10/03/20 10/04/20 10/04/20 18:59 06:59 18:59 Intake Total 480 Output Total 600 250 Balance -120 -250 Weight 87.543 kg Intake: Oral 480 Output: Drainage 250 Right Back 250 Urine 600 Other: Voiding Method Urinal # Voids 1 3 - Exam CONSTITUTIONAL: Appears comfortable, cooperative, no acute distress RESPIRATORY: Lungs sounds diminished bilaterally. Respirations even, nonlabored. Currently on room air with oxygen saturation 93%. Able to achieve 1500 mL on incentive spirometry. Strong productive cough. CARDIOVASCULAR: S1, S2 present. Regular rate and rhythm. Palpable peripheral pulses bilaterally. No edema present. No calf pain or tenderness noted. SCDs present. GASTROINTESTINAL: Abdomen soft, nontender, nondistended. Active bowel sounds present 4 quadrants. Tolerating diet. GENITOURINARY: Continues to void clear, yellow urine INTEGUMENTARY: Skin is warm and dry with evidence of good perfusion. NEUROLOGIC: Cranial nerves II through XII intact MUSKULOSKELETAL: Able to move all extremities, strength equal bilaterally, gait normal PSYCHIATRIC: Alert and oriented to person place and time, appropriate affect, intact judgment and insight INVASIVE LINES AND TUBES: Right pigtail catheter present and connected to wall suction, no air leaks present. Right pigtail catheter with 250 mL of cloudy yellow drainage overnight, 300 mL last 24 hours. - Allied health notes Allied health notes reviewed: nursing - Labs CBC & Chem 7: 10/03/20 06:42 10/03/20 06:42 Labs: Abnormal Lab Results - Last 24 Hours (Table) 10/03/20 10/03/20 10/03/20 Range/Units 06:42 06:42 06:42 WBC 10.56 H (4.50-10.00) X 10*3/uL RBC 3.25 L (4.40-5.60) X 10*6/uL Hgb 9.8 L (13.0-17.0) g/dL Hct 30.4 L (39.6-50.0) % Immature Gran # 0.06 H (0.00-0.04) X 10*3/uL Neutrophils # 8.25 H (1.80-7.70) X 10*3/uL D-Dimer 4.00 H (<0.60) mg/L FEU Sodium 136 L (137-145) mmol/L BUN 21 H (9-20) mg/dL C-Reactive Protein 18.7 H (<1.0) mg/dL Microbiology - Last 24 Hours (Table) 09/30/20 17:59 Blood Culture - Preliminary Blood No Growth after 72 hours 09/30/20 17:55 Blood Culture - Preliminary Blood No Growth after 72 hours 10/01/20 15:15 Gram Stain - Preliminary Pleural Fluid Body Fluid Culture - Preliminary - Imaging and Cardiology Chest x-ray: report reviewed, image reviewed Assessment and Plan Assessment: 1. Large loculated right-sided pleural effusion, pathology c/w empyema, preliminary gram stain reporting gram negative bacilli, status post pigtail catheter placement by interventional radiology 2. Positive COVID-19 by PCR 3. Shortness of breath for 2 months 4. History of CAD 5. History of hypertension 6. History of hyperlipidemia 7. History of gout 8. History of prostate disorder 9. Never smoker 10. Moderate EtOH use Plan: 1. Continue pigtail catheter to continuous wall suction. Continue to monitor output 2. Encourage incentive spirometry is 10 times every hour while awake 3. Increase activity, ambulate as tolerated 4. Continue IV antibiotics per pulmonology 5. Will monitor daily x-rays 6. Covid management per pulmonology/primary care 7. GI/DVT prophylaxis 8. No acute surgical intervention necessary at this time. More recommendations to follow Time with Patient: Greater than 30
[2020-10-04] MEDS: ENOXAPARIN 40 MG/0.4 ML SYRINGE SQ SCH ×2 (08:23→19:51)
[2020-10-04] MEDS: PANTOPRAZOLE 40 MG TABLET PO SCH (08:23)
[2020-10-04] MEDS: CALCIUM CARBONATE 500 MG CHEWABLE PO PRN (08:23)
[2020-10-04 08:26] LABS: Basophils % (A) 0 %; Eosinophils # (A) 0.1 k/uL (0-0.7); Eosinophils % (A) 1 %; HCT 34.1 % (39.0-53.0); HGB 11.1 gm/dL (13.0-17.5); Lymphocytes # (A) 1.3 k/uL (1.0-4.8); Lymphocytes % (A) 14 %; MCH 30.2 pg (25.0-35.0); MCHC 32.5 g/dL (31.0-37.0); MCV 92.9 fL (80.0-100.0); Mean Platelet Volume 7.7; Monocytes # (A) 0.4 k/uL (0-1.0); Monocytes % (A) 4 %; Neutrophils # (A) 7.7 k/uL (1.3-7.7); Neutrophils % (A) 79 %; Platelet Count 401 k/uL (150-450); RBC 3.67 m/uL (4.30-5.90); RDW 13.7 % (11.5-15.5); WBC 9.7 k/uL (3.8-10.6)
[2020-10-04 08:27] LABS: C Reactive Protein 8.7 mg/dL (<1.0)
--- NOTE | 2020-10-04 16:36 | P.PN ---
Subjective Progress Note Date: 10/04/20 Principal diagnosis: COVID-19 infection, loculated fluid collection in the right posterior chest, empyema 80-year-old male, who presents to the emergency department, on September 30, complaining of chest pain, and weakness. The patient states she has not been feeling well for a number of months now, maybe 2. The patient denies any pain. He is coughing. He feels like his breathing is impaired. He's also had significant weight loss over the last couple of months. There is no fever or chills. He denies any nausea, vomiting, diarrhea, or abdominal pain. He denies any genitourinary complaints. The patient was seen in the emergency room, in ER room 19. The patient was on room air. He was not receiving any IV fluids. Chest x-ray revealed a masslike infiltrate in the right lung. On computed tomography scan, there is a loculated fluid collection in the right lung, which is quite extensive. White count 28.9, hemoglobin 11.4, hematocrit 36.1, platelet count 489,000. PT, INR, PTT is normal. Sodium 133, potassium 4.9, chlorides 99, CO2 23, anion gap 11, BUN 37, creatinine 1.52. AST 95, and OT 141. N-terminal proBNP 1420. Urine is essentially negative. Coronavirus testing was positive. On 10/02/2020 patient is status post right chest pigtail chest tube placement into the loculated parapneumonic pleural effusion with drainage of approximately 1100 cc of purulent drainage, pleural fluid analysis showed LDH of greater than 4500, 94,000 . Nucleated cells, 91 of PMNs, glucose of less than 4 and fluid total protein of 3800 consistent with exudative fluid related to empyema. Currently sitting up in a chair, on room air, pulse ox of 95%, he is afebrile, he does get short of breath with exertion, but seems to be in no acute distress, no chest discomfort, of note patient did test positive for COVID-19. Not requiring any supplemental oxygen, today's chest x-ray shows improved right sided pleural effusion, and patchy right basilar atelectasis and/or infiltrate. Today's labs show improving leukocytosis, with white blood cell count down to 16.5, hemoglobin is 10.4, electrolytes and renal profile were improved on today's labs, with BUN of 27 creatinine is 1.08. The patient continues to be on Zosyn for antibiotic coverage, On 10/03/2020 patient seen in follow-up on medical surgical floor, he is resting in bed, currently on room air, denies any worsening dyspnea, room air pulse ox is 96-97%, he is afebrile, hemodynamically he is stable, breathing is nonlabored, he has a right chest pigtail chest tube in place connected to the Pleur-evac, and there has been an additional 100-150 ML of serous fluid in the last 24 hours. His chest x-ray shows right basilar pleural catheter in place, no evidence of pneumothorax, and patchy right basilar density is unchanged. Pleural fluid cytology shows no cytologically malignant cells, and was positive for dense acute inflammatory cells consistent with empyema. Cultures are negative thus far. Patient remains on Zosyn for empiric antibiotic coverage. Today's labs have been reviewed On 10/04/2020 patient seen in follow-up on medical surgical floor, he is awake and alert, the right chest pigtail catheter is draining thin serosanguineous output, and patient had about 250 mL of pleural fluid in the last 24 hours, and the Pleur-evac has been changed out. Today's chest x-ray shows basilar atelec tasis and minimal residual effusion, stable chest tube. Leukocytosis is improving, white blood cell count is 9.7, hemoglobin is 11.1, d-dimer is down to 3.63, BMP is pending, LDH is 517, and CRP is 8.7, pro calcitonin level came back at 0.31, pleural fluid cultures are pending, Gram stain was positive for many gram-negative bacilli. Patient is currently covered with Zosyn, complaints of chest discomfort, no fever or chills, not requiring any supplemental oxygen Objective - Vital Signs Vital signs: Vital Signs Temp 98.1 F 10/04/20 13:29 Pulse 68 10/04/20 13:29 Resp 17 10/04/20 13:29 BP 101/63 10/04/20 13:29 Pulse Ox 97 10/04/20 13:29 Intake & Output 10/03/20 10/04/20 10/04/20 18:59 06:59 18:59 Intake Total 480 Output Total 600 250 Balance -120 -250 Weight 87.543 kg Intake: Oral 480 Output: Drainage 250 Right Back 250 Urine 600 Other: Voiding Method Urinal # Voids 1 3 - Exam GENERAL EXAM: Alert, very pleasant, 80-year-old white male, on room air, with a pulse ox between 96-97% comfortable in no apparent distress. HEAD: Normocephalic/atraumatic. EYES: Normal reaction of pupils, equal size. Conjunctiva pink, sclera white. NOSE: Clear with pink turbinates. THROAT: No erythema or exudates. NECK: No masses, no JVD, no thyroid enlargement, no adenopathy. CHEST: No chest wall deformity. Symmetrical expansion. Right-sided pigtail chest tube catheter in place connected to Pleur-evac, with 1200 mL of purulent pleural drainage in the Pleur-evac, no air leak noted LUNGS: Equal air entry with no crackles, wheeze, rhonchi or dullness. CVS: Regular rate and rhythm, normal S1 and S2, no gallops, no murmurs, no rubs ABDOMEN: Soft, nontender. No hepatosplenomegaly, normal bowel sounds, no guarding or rigidity. EXTREMITIES: No clubbing, no edema, no cyanosis, 2+ pulses and upper and lower extremities. MUSCULOSKELETAL: Muscle strength and tone normal. SPINE: No scoliosis or deformity SKIN: No rashes CENTRAL NERVOUS SYSTEM: Alert and oriented -3. No focal deficits, tone is normal in all 4 extremities. PSYCHIATRIC: Alert and oriented -3. Appropriate affect. Intact judgment and insight. - Labs CBC & Chem 7: 10/04/20 07:43 10/03/20 06:42 Labs: Abnormal Lab Results - Last 24 Hours (Table) 10/04/20 10/04/20 10/04/20 Range/Units 07:43 07:43 07:43 RBC 3.67 L (4.30-5.90) m/uL Hgb 11.1 L (13.0-17.5) gm/dL Hct 34.1 L (39.0-53.0) % D-Dimer 3.63 H (<0.60) mg/L FEU C-Reactive Protein 8.7 H (<1.0) mg/dL Microbiology - Last 24 Hours (Table) 09/30/20 17:59 Blood Culture - Preliminary Blood No Growth after 72 hours 09/30/20 17:55 Blood Culture - Preliminary Blood No Growth after 72 hours 10/01/20 15:15 Gram Stain - Preliminary Pleural Fluid Body Fluid Culture - Preliminary Assessment and Plan Plan: Assessment: #1. Large loculated right chest pleural effusion, parapneumonic, status post insertion of right pleural Chest tube catheter with drainage of 1100 mL of puru lent drainage, pleural fluid analysis reveals empyema, cultures are currently pending, patient is covered with Zosyn, cytology showed dense acute inflammatory cells consistent with empyema, and no malignant cells. Pleural fluid cultures on pending, #2. COVID-19 infection without lung infiltrates, and without hypoxemia #3. Acute kidney injury improving with IV hydration #4. History of coronary artery disease #5. Hypertension #6. Hyperlipidemia #7. Gout #8. Prostate disorder #9. Nonsmoker Plan: Patient is clinically stable, Continue antibiotics His labs have been noted No worsening dyspnea or hypoxia Continue GI and DVT prophylaxis, continue Lovenox Inflammatory markers have been noted, d-dimer has been noted, Lovenox will be increased to 40 mg twice daily No need for steroids Await final cultures of the pleural fluid CT surgery is following I performed a history & physical examination of the patient and discussed their management with my nurse practitioner, Charley Prajapati. I reviewed the nurse practitioner's note and agree with the documented findings and plan of care. Lung sounds are positive for diminished breath sounds. The findings and the impression was discussed with the patient. I attest to the documentation by the nurse practitioner. Time with Patient: Less than 30
[2020-10-04 18:21] LABS: ALT 114 U/L (4-49); AST 63 U/L (17-59); African American GFR (CKD) 86 (>60 ml/min/1.73 sqM); Albumin 2.7 g/dL (3.5-5.0); Albumin/Globulin Ratio 0.9; Alkaline Phosphatase 119 U/L (38-126); Anion Gap 8 mmol/L; Blood Urea Nitrogen 21 mg/dL (9-20); Calcium 9.2 mg/dL (8.4-10.2); Carbon Dioxide 20 mmol/L (22-30); Chloride 105 mmol/L (98-107); Globulin 3.1 g/dL; Glucose 88 mg/dL (74-99); Non-African American GFR(CKD) 75 (>60 ml/min/1.73 sqM); Potassium 4.5 mmol/L (3.5-5.1); Sodium 133 mmol/L (137-145); Total Bilirubin 0.4 mg/dL (0.2-1.3); Total Protein 5.8 g/dL (6.3-8.2)
--- NOTE | 2020-10-04 19:02 | PN ---
PROGRESS NOTE DATE OF SERVICE: 10/04/2020 REASON FOR FOLLOW UP: Empyema. INTERVAL HISTORY: Patient is currently afebrile. Patient is breathing comfortably. Patient denies having any chest pain, shortness of breath or cough. No abdominal pain or diarrhea. PHYSICAL EXAMINATION: Blood pressure 101/63, pulse of 58, temperature 98.1. He is 97% on room air. General description is an elderly male up in the chair in no distress. Respiratory system: Unlabored breathing, decreased breath sounds at the base, no wheeze. Heart: S1, S2. Regular rate. Abdomen soft, no tenderness. LABS: Hemoglobin 11.1, white count 9.7, creatinine 1.09. Cultures currently pending. DIAGNOSTIC IMPRESSION AND PLAN: Patient with empyema status post chest tube placement. Cultures with gram-negative sensitivities pending. Patient is covered with Zosyn. He will need a PICC line for outpatient antibiotics. Continue supportive care. MMODL / IJN: [id number] /
--- NOTE | 2020-10-04 19:22 | PN ---
PROGRESS NOTE DATE OF SERVICE: 10/04/2020 I am covering for Dr. Gay. This 80-year-old gentleman admitted with COVID-19 had significant empyema on the right side. A pigtail catheter has been inserted. Cultures are negative. Patient is on broad-spectrum IV antibiotics. Patient is being closely monitored. The patient had a CT scan of the chest. D-dimer is still elevated. PAST MEDICAL HISTORY: Reviewed. REVIEW OF SYSTEMS: CARDIOVASCULAR: No angina. RESPIRATION: As mentioned earlier. GI: As mentioned earlier. NERVOUS SYSTEM: No numbness, no weakness. CURRENT MEDICATIONS: Reviewed include zyloprim, Norvasc, aspirin, Tenormin, Lipitor Lovenox, Proscar, Zestril, Protonix Zosyn IV. PHYSICAL EXAMINATION: Patient is alert, oriented x3. Pulse 68, blood pressure 120/60, respiration 18, temperature 98.2, pulse ox 98% on room air. HEENT: Conjunctivae normal. Oral mucosa moist. NECK: No jugular venous distention. No lymph node enlargement. CARDIOVASCULAR: S1, S2, muffled. No S3, no S4, RESPIRATORY: Diminished breath sounds at the bases. A few rhonchi. ABDOMEN: Soft, nontender. LEGS: No edema, no swelling. NERVOUS SYSTEM: No focal deficits. LAB STUDIES: WBC 9.2, hemoglobin 11.1, sodium 136. ASSESSMENT: 1. Acute right thoracic empyema status post drainage. 2. Acute COVID-19 infection without any evidence of pneumonia with sepsis. 3. Leukocytosis. 4. Anemia. 5. Elevated D-dimer. 6. Hyponatremia. 7. Elevated AST, ALT and alkaline phosphatase. 8. Hypocalcemia. 9. Hypoalbuminemia. 10.Elevated procalcitonin. 11.Rule out cirrhosis of the liver and chronic liver disease. RECOMMENDATION AND DISCUSSION: In this 80-year-old gentleman who presented with multiple complex medical issues, we will monitor the patient closely, continue the current management, continue symptomatic treatment. I will recommend CT scan of the abdomen and pelvis and as well as CT angio of the chest to rule out the possibility of pulmonary embolism. If CT angio is negative I would also recommend ultrasound of the legs. Otherwise, continue the antibiotics. Prognosis guarded because of multiple complex medical issues and further recommendations to follow. MMODL / IJN: [id number] /
[2020-10-04] MEDS: SODIUM CHLORIDE 0.9% 1,000 ML IV SCH (19:38)
[2020-10-04] MEDS: FINASTERIDE 5 MG TAB PO SCH (19:50)
[2020-10-04] MEDS: allopurinoL 300 MG TAB PO SCH (19:50)
[2020-10-04] MEDS: lisinopriL 5 MG TAB PO SCH (19:51)
[2020-10-04] MEDS: ATORVASTATIN 10 MG TAB PO SCH (19:51)
[2020-10-04] MEDS: amLODIPine 10 MG TAB PO SCH (19:51)
[2020-10-04] MEDS: ASPIRIN 81 MG PO SCH (19:51)
[2020-10-04] MEDS: atenoloL 25 MG TAB PO SCH (19:51)
[2020-10-04] MEDS: IOPAMIDOL CONTRAST (ORAL USE) VIAL PO PRN ×2 (21:00→22:10)
--- NOTE | 2020-10-04 23:12 | CT ---
EXAMINATION TYPE: CT angio chest DATE OF EXAM: 10/04/2020 COMPARISON: 09/30/2020 HISTORY: Covid, difficulty breathing. CT DLP: 425.9 mGycm Automated exposure control for dose reduction was used. CONTRAST: Performed with IV Contrast, patient injected with 100 mL of Isovue 370. Images were obtained from the thoracic inlet to the diaphragm with IV contrast. There are 3-D post pr ocessed images. There is mild to moderate right pleural effusion. There is some air bubbles in the pleural space at t he right lung base. There is right-sided chest tube with pigtail catheter in good position in the ple ural space right lower lobe. There is no mediastinal adenopathy. There are no hilar masses. There is normal contrast opacification of the pulmonary arteries. There are no filling defects. There is some atelectasis is adjacent to the right pleural effusion. Heart size is normal. There is no pericardial effusion. Thoracic aorta is intact. There is no aneurys m or dissection. The sternum is intact. Bony thorax is intact. There is no compression fracture in th e thoracic spine. There are a few small right bronchial lymph nodes measuring less than 1 cm. IMPRESSION: No evidence of pulmonary embolism. Right pleural effusion and right basilar atelectasis and infiltrat e. Chest tube in good position. Pleural fluid decreased compared to old exam.
--- NOTE | 2020-10-04 23:24 | CT ---
EXAMINATION TYPE: CT abdomen pelvis w con DATE OF EXAM: 10/04/2020 COMPARISON: None HISTORY: Chronic liver disease. CT DLP: 1133.3 mGycm Automated exposure control for dose reduction was used. CONTRAST: Performed with IV Contrast, patient injected with mL of Isovue 370. Images obtained from the diaphragm to the floor the pelvis with IV contrast Isovue 100 mL. FINDINGS: There is pigtail drainage catheter in the pleural space in the right lower lobe with mild right pleur al effusion. There is pleural thickening. There is some atelectasis in the right lower lobe. Liver and spleen are intact. The bile ducts are not dilated. Gallbladder appears normal. There is no pancreatic mass. The stomach is intact. There is no adrenal mass. Kidneys show satisfactory contrast opacification. There is no hydronephrosi s. The ureters are not dilated. There are multiple bilateral renal cortical cysts that measure up to 4.5 cm. There is no hydronephrosis. Bladder distends smoothly. Delayed images show normal renal excre tion. Ureters are not dilated. There is no retroperitoneal adenopathy. Abdominal aorta is atheromatou s. Bladder distends smoothly. There is no inguinal hernia. There is no free fluid in the pelvis. Ther e is prostatic calcification. There is no mesenteric edema. There is no ascites or free air. There is no bowel obstruction. Appendi x is not definitely seen. There is no sign of thickened appendix. There is normal oral contrast opaci fication of the small bowel. Oral contrast extends to the transverse colon. There are some large smith l diverticula. The lumbar vertebra have fairly normal alignment. There is multilevel lumbar spondylotic changes. The re is no compression fracture. The bony pelvis is intact. There is no evidence of hip fracture. IMPRESSION: Right pleural effusion. Multiple renal cortical cysts. No focal liver defect. I do not see evidence for liver disease. No dil ated ducts. Mild colonic diverticulosis without diverticulitis. There is evidence for some moderately severe L3-4 bony spinal stenosis.
[2020-10-05] MEDS: SODIUM CHLORIDE 0.9% 1,000 ML IV SCH ×2 (02:04→15:52)
--- NOTE | 2020-10-05 04:20 | XR ---
EXAM: XR Chest, 1 View CLINICAL HISTORY: ITS.REASON XR Reason: chest tube TECHNIQUE: Frontal view of the chest. COMPARISON: 10/04/2020. FINDINGS: Lungs: Subsegmental atelectasis at the lung bases. Pleural space: Unremarkable. No pneumothorax. Heart: Cardiomediastinal silhouette unremarkable. Mediastinum: See above. Bones/joints: Unremarkable. Vasculature: Atherosclerotic disease of the aortic knob. Tubes, lines and devices: Previous lower catheter projected at the right lung base is no longer visualized. IMPRESSION: 1. Previously noted catheter projecting at the right lung base is no longer visualized. 2. Subsegmental atelectasis at the lung bases similar to that noted on the previous study.
[2020-10-05] MEDS: PIPERACILLIN-TAZOBACTAM 3.375 GM in SODIUM CHLORIDE 0.9% 100 ML IVPB SCH ×3 (05:05→20:52)
--- NOTE | 2020-10-05 09:12 | P.PN ---
Subjective Progress Note Date: 10/05/20 Principal diagnosis: Large loculated right-sided pleural effusion, empyema, status post pigtail catheter placement by interventional radiology, positive COVID-19 by PCR. Previous medical history of shortness of breath for 2 months, CAD, hypertension, hyperlipidemia, gout, prostate disorder, never smoker, moderate EtOH use The patient is currently laying in bed, sleeping in no acute distress. No complaints of pain, shortness of breath, has been up ambulating in room without assistance. He is actively using incentive spirometry. Right-sided pigtail catheter inadvertently pulled out last night. Patient continues to remain in no distress. Remains afebrile, oxygenating well on room air. Preliminary Gram stain on pleural fluid demonstrating gram-negative bacilli, finalized anaerobic culture positive for anaerobic gram-negative bacilli, pathology demonstrates dense acute inflammatory cells c/w empyema, remains on IV Zosyn. No other new concerns. Objective - Vital Signs Vital signs: Vital Signs Temp 97.8 F 10/05/20 04:41 Pulse 64 10/05/20 04:41 Resp 17 10/05/20 04:41 BP 93/66 10/05/20 04:41 Pulse Ox 96 10/05/20 04:41 Intake & Output 10/04/20 10/05/20 10/05/20 18:59 06:59 18:59 Other: Voiding Method Urinal # Voids 3 4 # Bowel Movements 2 - Exam CONSTITUTIONAL: Appears comfortable, cooperative, no acute distress RESPIRATORY: Lungs sounds diminished bilaterally. Respirations even, nonlabored. Currently on room air with oxygen saturation 96%. CARDIOVASCULAR: S1, S2 present. Regular rate and rhythm. Palpable peripheral pulses bilaterally. No edema present. No calf pain or tenderness noted. SCDs present. GASTROINTESTINAL: Abdomen soft, nontender, nondistended. Active bowel sounds present 4 quadrants. Tolerating diet. GENITOURINARY: Continues to void clear, yellow urine INTEGUMENTARY: Skin is warm and dry with evidence of good perfusion. NEUROLOGIC: Cranial nerves II through XII intact MUSKULOSKELETAL: Able to move all extremities, strength equal bilaterally, gait normal PSYCHIATRIC: Alert and oriented to person place and time, appropriate affect, intact judgment and insight - Allied health notes Allied health notes reviewed: nursing - Labs CBC & Chem 7: 10/04/20 07:43 10/04/20 07:53 Labs: Abnormal Lab Results - Last 24 Hours (Table) 10/04/20 10/05/20 Range/Units 07:53 06:44 D-Dimer 3.50 H (<0.60) mg/L FEU Sodium 133 L (137-145) mmol/L Carbon Dioxide 20 L (22-30) mmol/L BUN 21 H (9-20) mg/dL AST 63 H (17-59) U/L ALT 114 H (4-49) U/L Total Protein 5.8 L (6.3-8.2) g/dL Albumin 2.7 L (3.5-5.0) g/dL Microbiology - Last 24 Hours (Table) 10/01/20 15:15 Anaerobic Culture - Final Pleural Fluid Anaerobic Gm Negative Bacilli 09/30/20 17:59 Blood Culture - Preliminary Blood No Growth after 96 hours 09/30/20 17:55 Blood Culture - Preliminary Blood No Growth after 96 hours - Imaging and Cardiology Chest x-ray: report reviewed, image reviewed Assessment and Plan Assessment: 1. Large loculated right-sided pleural effusion, pathology c/w empyema, preliminary gram stain reporting gram negative bacilli, status post pigtail catheter placement by interventional radiology 2. Positive COVID-19 by PCR 3. Shortness of breath for 2 months 4. History of CAD 5. History of hypertension 6. History of hyperlipidemia 7. History of gout 8. History of prostate disorder 9. Never smoker 10. Moderate EtOH use Plan: 1. As patient is asymptomatic, afebrile, white blood cell count had returned to normal as of yesterday, and patient is tolerating IV antibiotics would recommend no replacement of chest tube. Once cultures are finalized can tailor antibiotic management per infectious disease who is recommending PICC line placement for outpatient antibiotics. 2. Encourage incentive spirometry is 10 times every hour while awake 3. Increase activity, ambulate as tolerated 4. Continue IV antibiotics per pulmonology 5. Will monitor daily x-rays 6. Covid management per pulmonology/primary care 7. GI/DVT prophylaxis 8. No acute surgical intervention necessary. 9. Will follow with you while hospitalized Time with Patient: Greater than 30
[2020-10-05] MEDS: PANTOPRAZOLE 40 MG TABLET PO SCH (09:47)
[2020-10-05] MEDS: ENOXAPARIN 40 MG/0.4 ML SYRINGE SQ SCH ×2 (09:47→20:52)
[2020-10-05 10:07] LABS: Basophils # (A) 0.05 X 10*3/uL (0.00-0.10); Basophils % (A) 0.5 %; Eosinophils # (A) 0.14 X 10*3/uL (0.04-0.35); Eosinophils % (A) 1.4 %; HCT 29.4 % (39.6-50.0); HGB 9.6 g/dL (13.0-17.0); Lymphocytes % (A) 15.3 %; MCH 30.2 pg (27.0-32.0); MCHC 32.7 g/dL (32.0-37.0); MCV 92.5 fL (80.0-97.0); Mean Platelet Volume 10.2 fL (9.5-12.2); Monocytes # (A) 0.65 X 10*3/uL (0.20-1.00); Monocytes % (A) 6.6 %; Neutrophils # (A) 7.37 X 10*3/uL (1.80-7.70); Neutrophils % (A) 75.4 %; Platelet Count 397 X 10*3/uL (140-440); RBC 3.18 X 10*6/uL (4.40-5.60); RDW 13.3 % (11.5-14.5); WBC 9.79 X 10*3/uL (4.50-10.00)
[2020-10-05 11:24] LABS: C Reactive Protein 6.1 mg/dL (0.0-0.8)
[2020-10-05] MEDS: LOPERAMIDE 2 MG CAP PO PRN ×3 (12:22→22:56)
--- NOTE | 2020-10-05 15:26 | P.PN ---
Subjective Progress Note Date: 10/05/20 Principal diagnosis: COVID-19 infection, loculated fluid in the right posterior chest, empyema 80-year-old male, who presents to the emergency department, on September 30, complaining of chest pain, and weakness. The patient states she has not been feeling well for a number of months now, maybe 2. The patient denies any pain. He is coughing. He feels like his breathing is impaired. He's also had significant weight loss over the last couple of months. There is no fever or c hills. He denies any nausea, vomiting, diarrhea, or abdominal pain. He denies any genitourinary complaints. The patient was seen in the emergency room, in ER room 19. The patient was on room air. He was not receiving any IV fluids. Chest x-ray revealed a masslike infiltrate in the right lung. On computed tomography scan, there is a loculated fluid collection in the right lung, which is quite extensive. White count 28.9, hemoglobin 11.4, hematocrit 36.1, platelet count 489,000. PT, INR, PTT is normal. Sodium 133, potassium 4.9, chlorides 99, CO2 23, anion gap 11, BUN 37, creatinine 1.52. AST 95, and OT 141. N-terminal proBNP 1420. Urine is essentially negative. Coronavirus testi ng was positive. On 10/02/2020 patient is status post right chest pigtail chest tube placement into the loculated parapneumonic pleural effusion with drainage of approximately 1100 cc of purulent drainage, pleural fluid analysis showed LDH of greater than 4500, 94,000 . Nucleated cells, 91 of PMNs, glucose of less than 4 and fluid total protein of 3800 consistent with exudative fluid related to empyema. Currently sitting up in a chair, on room air, pulse ox of 95%, he is afebrile, he does get short of breath with exertion, but seems to be in no acute distress, no chest discomfort, of note patient did test positive for COVID-19. Not requiring any supplemental oxygen, today's chest x-ray shows improved right sided pleural effusion, and patchy right basilar atelectasis and/or infiltrate. Today's labs show improving leukocytosis, with white blood cell count down to 16.5, hemoglobin is 10.4, electrolytes and renal profile were improved on today's labs, with BUN of 27 creatinine is 1.08. The patient continues to be on Zosyn for antibiotic coverage, On 10/03/2020 patient seen in follow-up on medical surgical floor, he is resting in bed, currently on room air, denies any worsening dyspnea, room air pulse ox is 96-97%, he is afebrile, hemodynamically he is stable, breathing is nonl abored, he has a right chest pigtail chest tube in place connected to the Pleur- evac, and there has been an additional 100-150 ML of serous fluid in the last 24 hours. His chest x-ray shows right basilar pleural catheter in place, no evidence of pneumothorax, and patchy right basilar density is unchanged. Pleural fluid cytology shows no cytologically malignant cells, and was positive for dense acute inflammatory cells consistent with empyema. Cultures are negative thus far. Patient remains on Zosyn for empiric antibiotic coverage. Today's labs have been reviewed On 10/04/2020 patient seen in follow-up on medical surgical floor, he is awake and alert, the right chest pigtail catheter is draining thin serosanguineous output, and patient had about 250 mL of pleural fluid in the last 24 hours, and the Pleur-evac has been changed out. Today's chest x-ray shows basilar atelectasis and minimal residual effusion, stable chest tube. Leukocytosis is improving, white blood cell count is 9.7, hemoglobin is 11.1, d-dimer is down to 3.63, BMP is pending, LDH is 517, and CRP is 8.7, pro calcitonin level came back at 0.31, pleural fluid cultures are pending, Gram stain was positive for many gram-negative bacilli. Patient is currently covered with Zosyn, complaints of chest discomfort, no fever or chills, not requiring any supplemental oxygen The patient is seen today 10/05/2020 follow-up on the regular medical floor. He is currently sitting up at the bedside. Awake and alert in no acute distress. His pigtail catheter inadvertently was pulled out of his right chest during the evening. He is doing well. There is still some drainage noted from the puncture site. He is maintaining good O2 saturations in the upper 90s on room air. Fluid was positive for gram-negative bacilli. Remains on Zosyn. Chest x- ray reveals subsegmental atelectasis at the lung bases, similar compared to previous. White count 9.7. Hemoglobin 9.6. D-dimer 3.50. LDH 166. C- reactive protein 6.1. C. difficile screen was negative. He remains on Lovenox for DVT prophylaxis. Objective - Vital Signs Vital signs: Vital Signs Temp 97.9 F 10/05/20 14:00 Pulse 65 10/05/20 14:00 Resp 18 10/05/20 14:00 BP 92/48 10/05/20 14:00 Pulse Ox 98 10/05/20 14:00 Intake & Output 10/04/20 10/05/20 10/05/20 18:59 06:59 18:59 Other: Voiding Method Urinal # Voids 3 4 # Bowel Movements 2 - Exam GENERAL EXAM: Alert, very pleasant 80-year-old gentleman, on room air, comfortable in no apparent distress. HEAD: Normocephalic. EYES: Normal reaction of pupils, equal size. NOSE: Clear with pink turbinates. THROAT: No erythema or exudates. NECK: No masses, no JVD. CHEST: No chest wall deformity. LUNGS: Equal air entry with crackles in the bases right greater than left, diminished. CVS: S1 and S2 normal with no audible murmur, regular rhythm. ABDOMEN: No hepatosplenomegaly, normal bowel sounds, no guarding or rigidity. SPINE: No scoliosis or deformity SKIN: No rashes CENTRAL NERVOUS SYSTEM: No focal deficits, tone is normal in all 4 extremities. EXTREMITIES: There is no peripheral edema. No clubbing, no cyanosis. Peripheral pulses are intact. - Labs CBC & Chem 7: 10/05/20 06:44 10/04/20 07:53 Labs: Abnormal Lab Results - Last 24 Hours (Table) 10/04/20 10/05/20 10/05/20 Range/Units 07:53 06:44 06:44 RBC (4.40-5.60) X 10*6/uL Hgb (13.0-17.0) g/dL Hct (39.6-50.0) % Immature Gran # (0.00-0.04) X 10*3/uL D-Dimer 3.50 H (<0.60) mg/L FEU Sodium 133 L (137-145) mmol/L Carbon Dioxide 20 L (22-30) mmol/L BUN 21 H (9-20) mg/dL AST 63 H (17-59) U/L ALT 114 H (4-49) U/L C-Reactive Protein 6.1 H (0.0-0.8) mg/dL Total Protein 5.8 L (6.3-8.2) g/dL Albumin 2.7 L (3.5-5.0) g/dL 10/05/20 Range/Units 06:44 RBC 3.18 L (4.40-5.60) X 10*6/uL Hgb 9.6 L (13.0-17.0) g/dL Hct 29.4 L (39.6-50.0) % Immature Gran # 0.08 H (0.00-0.04) X 10*3/uL D-Dimer (<0.60) mg/L FEU Sodium (137-145) mmol/L Carbon Dioxide (22-30) mmol/L BUN (9-20) mg/dL AST (17-59) U/L ALT (4-49) U/L C-Reactive Protein (0.0-0.8) mg/dL Total Protein (6.3-8.2) g/dL Albumin (3.5-5.0) g/dL Microbiology - Last 24 Hours (Table) 10/01/20 15:15 Anaerobic Culture - Final Pleural Fluid Anaerobic Gm Negative Bacilli 09/30/20 17:59 Blood Culture - Preliminary Blood No Growth after 96 hours 09/30/20 17:55 Blood Culture - Preliminary Blood No Growth after 96 hours Assessment and Plan Assessment: 1 Large loculated right chest pleural effusion, parapneumonic, status post insertion of right pleural catheter with drainage of 1100 mL of purulent drainage, pleural fluid analysis reveals empyema, cultures positive for gram- negative bacilli, patient is covered with Zosyn, cytology showed dense acute inflammatory cells consistent with empyema, and no malignant cells. Pigtail catheter inadvertently dislodged on 10/05/2020. 2 COVID-19 infection without lung infiltrates, and without hypoxemia 3 Acute kidney injury improving with IV hydration 4 History of coronary artery disease 5 Hypertension 6 Hyperlipidemia 7 Gout 8 Prostate disorder 9 Nonsmoker Plan: The patient was seen and evaluated by Dr. Payton Chest x-ray and labs reviewed Pigtail catheter inadvertently removed Culture still pending, preliminary gram-negative bacilli Remains on Zosyn Possibly home in the morning on Augmentin ID is on the case We will continue to follow I, the cosigning physician, performed a history & physical examination of the patient. Lungs sounds basilar crackles right greater than left, diminished. Maintaining good O2 saturations in the 90s on room air. I discussed the assessment and plan of care with my nurse practitioner, Malinda Edwards. I attest to the above note as dictated by her.
[2020-10-05] MEDS: CHOLESTYRAMINE (WITH SUGAR) 4 GM PACKET PO SCH ×2 (15:51→15:55)
--- NOTE | 2020-10-05 16:42 | PN ---
PROGRESS NOTE DATE OF SERVICE: 10/05/2020. REASON FOR FOLLOWUP: Empyema. INTERVAL HISTORY: The patient is currently afebrile. Patient is breathing comfortably on room air. The patient denies having any chest pain, shortness of breath. He did have a cough but no worsening. No abdominal pain. No diarrhea. PHYSICAL EXAMINATION: Blood pressure is 92/48 with a pulse of 55, temperature is 97.9, he is 98% on room air. GENERAL DESCRIPTION: An elderly male sitting in bed in no distress. RESPIRATORY SYSTEM: Unlabored breathing, decreased breath sounds at the base, no wheeze. HEART: S1, S2. Regular rate and rhythm. ABDOMEN: Soft, no tenderness. LABS: Hemoglobin is 9.2, white count 7.9. CT done yesterday did show decrease in the right-sided fluid collection. DIAGNOSTIC IMPRESSION AND PLAN: The patient with empyema, status post chest tube placement. Culture with anaerobic Gram-negative bacilli. The patient is covered with Zosyn. In view of the extensive infection, he will benefit from PICC line and IV antibiotic therapy which can be simplified to Unasyn as no resistant gram-negative has been seen and close outpatient followup. MMODL / IJN: [id number] /
--- NOTE | 2020-10-05 16:54 | US ---
EXAMINATION TYPE: US venous doppler duplex LE BI DATE OF EXAM: 10/05/2020 4:44 PM COMPARISON: NONE CLINICAL HISTORY: dvt. Leg pain. SIDE PERFORMED: Bilateral TECHNIQUE: The lower extremity deep venous system is examined utilizing real time linear array sonog nguyễn with graded compression, doppler sonography and color-flow sonography. VESSELS IMAGED: Common Femoral Vein Deep Femoral Vein Greater Saphenous Vein * Femoral Vein Popliteal Vein Small Saphenous Vein * Proximal Calf Veins (* superficial vessels) Right Leg: Negative for DVT Left Leg: Negative for DVT IMPRESSION: No evidence of deep vein thrombosis in both legs.
--- NOTE | 2020-10-05 17:17 | PN ---
PROGRESS NOTE DATE OF SERVICE: 10/05/2020 I am covering for Dr. Gay. INTERVAL HISTORY: This 80-year-old gentleman, admitted with COVID-19 also seen to have empyema on the right side. The exact etiology of the empyema unknown at this time. Obtained a CT angio of the chest which did not show any pulmonary embolism and the patient also has some right pleural effusion. CT scan abdomen pelvis did not show any acute abnormality. The patient is being closely monitored. Patient apparently took pigtail catheter accidentally out yesterday in sleep. Patient closely monitored. Chest x-ray was reviewed. The patient is on broad-spectrum IV antibiotics. The cultures showed anaerobic gram-negative bacilli. PAST MEDICAL HISTORY: Reviewed. REVIEW OF SYSTEMS: CARDIOVASCULAR: As mentioned earlier. RESPIRATORY: As mentioned earlier. GI: As mentioned earlier. : No dysuria. NERVOUS SYSTEM: No numbness or weakness. CURRENT MEDICATIONS: Reviewed include zyloprim, aspirin, Tenormin, Lipitor, Tums, Questran, Zestril, Imodium, Zofran, Zosyn. PHYSICAL EXAMINATION: GENERAL: Patient is alert and oriented times three. VITAL SIGNS: Pulse 65, blood pressure 94/80, respirations 18, temperature 97.9, pulse ox 98% on room air. HEENT: Conjunctivae normal. Oral mucosa moist. NECK: No jugular venous distention. No carotid bruits. RESPIRATORY: Breath sounds diminished at the bases. A few scattered rhonchi. HEART: S1 and S2, muffled. ABDOMEN: Soft, no tenderness. EXTREMITIES: No edema, no swelling. NERVOUS: No focal deficits. LAB STUDIES: WBC 9.7, hemoglobin 9.6, and D-dimer is 3.50. C-reactive protein 6.1. ASSESSMENT: 1. Acute right thoracic empyema, possibly anaerobic secondary to anaerobic gram- negative bacilli of undetermined etiology. 2. Status post drainage. 3. Acute COVID-19 infection without any evidence of pneumonia or sepsis. 4. Leukocytosis. 5. Anemia. 6. Elevated D-dimer. 7. Hyponatremia. 8. Elevated AST, ALT, alkaline phosphatase. 9. Hypocalcemia. 10.Hypoalbuminemia. 11.Elevated procalcitonin. 12.No evidence of any chronic liver disease at this time. RECOMMENDATIONS AND DISCUSSION: I recommend to continue current management and continue with symptomatic treatment. Continue the antibiotics. Closely follow with Infectious Disease. Otherwise, the patient is on IV Zosyn at this time. Guarded prognosis. Further recommendations to follow. White count is elevated. The D-dimer is still elevated. The patient does not have features of any pulmonary embolism. I would also recommend ultrasound of the leg to rule out possible DVT. MMODL / IJN: [id number] /
[2020-10-05] MEDS: lisinopriL 5 MG TAB PO SCH (20:51)
[2020-10-05] MEDS: ASPIRIN 81 MG PO SCH (20:51)
[2020-10-05] MEDS: FINASTERIDE 5 MG TAB PO SCH (20:51)
[2020-10-05] MEDS: ATORVASTATIN 10 MG TAB PO SCH (20:51)
[2020-10-05] MEDS: atenoloL 25 MG TAB PO SCH (20:51)
[2020-10-05] MEDS: allopurinoL 300 MG TAB PO SCH (20:51)
[2020-10-06] MEDS: SODIUM CHLORIDE 0.9% 1,000 ML IV SCH ×2 (02:57→12:15)
[2020-10-06] MEDS: PIPERACILLIN-TAZOBACTAM 3.375 GM in SODIUM CHLORIDE 0.9% 100 ML IVPB SCH (04:56)
[2020-10-06] MEDS: LOPERAMIDE 2 MG CAP PO PRN ×2 (05:57→11:22)
--- NOTE | 2020-10-06 07:41 | XR ---
EXAMINATION TYPE: XR chest 1V portable DATE OF EXAM: 10/06/2020 CLINICAL HISTORY: Difficulty breathing and covid progress study. TECHNIQUE: Single AP portable upright view of the chest is obtained. COMPARISON: Chest x-ray from one day earlier and older studies. CTA chest 2 days ago. FINDINGS: Background mild chronic emphysematous and pulmonary fibrotic change with persistent right basilar opacity extending medially. Left lung remains clear. Cardiac silhouette size stable and withi n normal limits with atherosclerotic change in the thoracic aorta. Multilevel spurring of the spine i s redemonstrated. IMPRESSION: Mild chronic emphysematous and pulmonary fibrotic changes with right basilar pleural flui d collection and associated right lower lung atelectasis and/or infiltrate. No significant change fro m most recent x-ray.
--- NOTE | 2020-10-06 07:41 | P.PN ---
Subjective Progress Note Date: 10/06/20 Principal diagnosis: Large loculated right-sided pleural effusion, empyema, status post pigtail catheter placement by interventional radiology, positive COVID-19 by PCR. Previous medical history of shortness of breath for 2 months, CAD, hypertension, hyperlipidemia, gout, prostate disorder, never smoker, moderate EtOH use The patient is currently sitting up in bed, eating breakfast in no acute distress. No complaints of pain, shortness of breath, has been up ambulating in room without assistance. He is actively using incentive spirometry. Right-sided pigtail catheter inadvertently pulled out 2 nights ago, small amount drainage from site. Patient continues to remain in no distress. Remains afebrile, oxygenating well on room air. Finalized culture on pleural fluid demonstrating no growth, finalized anaerobic culture positive for anaerobic gram-negative bacilli, pathology demonstrates dense acute inflammatory cells c/w empyema, remains on IV Zosyn. No other new concerns. Objective - Vital Signs Vital signs: Vital Signs Temp 97.8 F 10/06/20 05:12 Pulse 53 L 10/06/20 05:12 Resp 18 10/06/20 05:12 BP 119/67 10/06/20 05:12 Pulse Ox 95 10/06/20 05:12 Intake & Output 10/05/20 10/06/20 10/06/20 18:59 06:59 18:59 Other: Voiding Method Urinal # Voids 4 3 # Bowel Movements 5 - Exam CONSTITUTIONAL: Appears comfortable, cooperative, no acute distress RESPIRATORY: Lungs sounds diminished bilaterally. Respirations even, nonlabored. Currently on room air with oxygen saturation 95%. CARDIOVASCULAR: S1, S2 present. Regular rate and rhythm. Palpable peripheral pulses bilaterally. No edema present. No calf pain or tenderness noted. SCDs present. GASTROINTESTINAL: Abdomen soft, nontender, nondistended. Active bowel sounds present 4 quadrants. Tolerating diet. GENITOURINARY: Continues to void clear, yellow urine INTEGUMENTARY: Skin is warm and dry with evidence of good perfusion. NEUROLOGIC: Cranial nerves II through XII intact MUSKULOSKELETAL: Able to move all extremities, strength equal bilaterally, gait normal PSYCHIATRIC: Alert and oriented to person place and time, appropriate affect, intact judgment and insight - Allied health notes Allied health notes reviewed: nursing - Labs CBC & Chem 7: 10/05/20 06:44 10/04/20 07:53 Labs: Abnormal Lab Results - Last 24 Hours (Table) 10/05/20 10/05/20 10/05/20 Range/Units 06:44 06:44 06:44 RBC 3.18 L (4.40-5.60) X 10*6/uL Hgb 9.6 L (13.0-17.0) g/dL Hct 29.4 L (39.6-50.0) % Immature Gran # 0.08 H (0.00-0.04) X 10*3/uL D-Dimer 3.50 H (<0.60) mg/L FEU C-Reactive Protein 6.1 H (0.0-0.8) mg/dL Microbiology - Last 24 Hours (Table) 09/30/20 17:59 Blood Culture - Preliminary Blood No Growth after 120 hours 09/30/20 17:55 Blood Culture - Preliminary Blood No Growth after 120 hours 10/01/20 15:15 Gram Stain - Final Pleural Fluid Body Fluid Culture - Final - Imaging and Cardiology Chest x-ray: image reviewed Assessment and Plan Assessment: 1. Large loculated right-sided pleural effusion, pathology c/w empyema, pre liminary gram stain reporting gram negative bacilli, status post pigtail catheter placement by interventional radiology 2. Positive COVID-19 by PCR 3. Shortness of breath for 2 months 4. History of CAD 5. History of hypertension 6. History of hyperlipidemia 7. History of gout 8. History of prostate disorder 9. Never smoker 10. Moderate EtOH use Plan: 1. As patient is asymptomatic, afebrile, white blood cell count had returned to normal as of yesterday, and patient is tolerating IV antibiotics would recommend no replacement of chest tube. 2. Encourage incentive spirometry is 10 times every hour while awake 3. Increase activity, ambulate as tolerated 4. Continue IV antibiotics per pulmonology 5. Will monitor daily x-rays 6. Covid management per pulmonology/primary care 7. GI/DVT prophylaxis 8. No acute surgical intervention necessary. 9. From cardiothoracic standpoint patient can be discharged to home when ok with other services. Time with Patient: Greater than 30
[2020-10-06] MEDS: PANTOPRAZOLE 40 MG TABLET PO SCH (08:21)
[2020-10-06] MEDS: ENOXAPARIN 40 MG/0.4 ML SYRINGE SQ SCH (08:21)
[2020-10-06] MEDS: CHOLESTYRAMINE (WITH SUGAR) 4 GM PACKET PO SCH ×3 (08:22→16:56)
--- NOTE | 2020-10-06 08:30 | P.DS ---
Providers Date of admission: 09/30/20 20:17 Attending physician: Ryan Gay Consults: 09/30/20 20:17 Consult Physician Urgent Consulting Provider: Mae Payton Consult Reason/Comments: Pleural effusion, lung infection Do you want consulting provider notified?: Yes 10/02/20 07:53 Consult Physician Routine Consulting Provider: Mckenna Post Consult Reason/Comments: right empyema Do you want consulting provider notified?: Yes 10/03/20 11:02 Consult Physician Routine Consulting Provider: Mendel Berger Consult Reason/Comments: empyema Do you want consulting provider notified?: Yes Primary care physician: Ryan Gay - Discharge Diagnosis(es) (1) Pleural effusion Current Visit: Yes Status: Acute Hospital Course: This is a discharge summary 80-year-old white male essentially admitted for pleural effusion. Multiple consultants were consulted and had significant assistance. He was stabilized after thoracentesis. Pelvic positivity was noted but he was stable from a pulmonology perspective. He is discharged in stable condition on Augmentin and will follow-up with me in about 3-5 days. Patient Condition at Discharge: Stable Plan - Discharge Summary Discharge Rx Participant: No New Discharge Prescriptions: New Amoxicillin/Potassium Clav [Augmentin 875-125 Tablet] 1 tab PO BID 7 Days #14 tab Continue amLODIPine BESYLATE/BENAZEPRIL [amLODIPine BESYLATE/BENAZEPRIL 10-20 MG] 1 cap PO HS Finasteride [Proscar] 5 mg PO HS Aspirin EC [Ecotrin Low Dose] 81 mg PO HS atenoloL [Atenolol] 25 mg PO HS Simvastatin [Zocor] 20 mg PO HS Allopurinol [Zyloprim] 300 mg PO HS Discharge Medication List Allopurinol [Zyloprim] 300 mg PO HS 09/30/20 [History] Aspirin EC [Ecotrin Low Dose] 81 mg PO HS 09/30/20 [History] Finasteride [Proscar] 5 mg PO HS 09/30/20 [History] Simvastatin [Zocor] 20 mg PO HS 09/30/20 [History] amLODIPine BESYLATE/BENAZEPRIL [amLODIPine BESYLATE/BENAZEPRIL 10-20 MG] 1 cap PO HS 09/30/20 [History] atenoloL [Atenolol] 25 mg PO HS 09/30/20 [History] Amoxicillin/Potassium Clav [Augmentin 875-125 Tablet] 1 tab PO BID 7 Days #14 tab 10/06/20 [Rx] Follow up Appointment(s)/Referral(s): Ryan Gay MD [Primary Care Provider] - 3 Days Discharge Disposition: HOME SELF-CARE
[2020-10-06] MEDS: AMPICILLIN-SULBACTAM 3 GM in SODIUM CHLORIDE 0.9% 100 ML IVPB SCH ×2 (11:22→17:01)
[2020-10-06 12:02] LABS: Basophils # (A) 0.07 X 10*3/uL (0.00-0.10); Basophils % (A) 0.7 %; Eosinophils # (A) 0.19 X 10*3/uL (0.04-0.35); Eosinophils % (A) 1.9 %; HCT 30.6 % (39.6-50.0); Lymphocytes # (A) 1.53 X 10*3/uL (0.90-5.00); Lymphocytes % (A) 15.5 %; MCH 30.3 pg (27.0-32.0); MCHC 32.7 g/dL (32.0-37.0); MCV 92.7 fL (80.0-97.0); Mean Platelet Volume 10.2 fL (9.5-12.2); Monocytes # (A) 0.67 X 10*3/uL (0.20-1.00); Monocytes % (A) 6.8 %; Neutrophils # (A) 7.36 X 10*3/uL (1.80-7.70); Neutrophils % (A) 74.3 %; Platelet Count 408 X 10*3/uL (140-440); RDW 13.5 % (11.5-14.5)
[2020-10-06 12:32] LABS: INR 1.1 (<1.2); Prothrombin Time 11.6 sec (9.0-12.0)
[2020-10-06 13:46] VITALS: BP 115/66; PULSE 60; RESP 16; TEMP 98.6
--- NOTE | 2020-10-06 14:54 | PN ---
PROGRESS NOTE DATE OF SERVICE: 10/06/2020. REASON FOR FOLLOWUP: Right-sided empyema. INTERVAL HISTORY: The patient is currently afebrile. Patient is breathing comfortably on room air. The patient discontinued. Denies having any chest pain. No shortness of breath. Occasional cough. No abdominal pain. PHYSICAL EXAMINATION: Blood pressure is 93/55 with a pulse of 66. Temperature is 98.3. He is 97% on room air. General description: The patient is an elderly male up in the room in no distress. Respiratory system: Unlabored breathing, decreased breath sounds in the base, with no wheeze. Heart S1, S2. Regular rate and rhythm. ABDOMEN: Soft, no tenderness. LABS: Hemoglobin is 10, white count 9.90. DIAGNOSTIC IMPRESSION AND PLAN: Patient with right-sided empyema, status post chest tube placement. Culture with anaerobic Gram-negative bacilli, more likely aspiration etiology, considering the patient complaining of choking on food. The patient is responding to Zosyn. We will transition to Unasyn 3 g q.6h as no resistant gram-negative has been grown. Plan for 3 L of IV antibiotics with weekly monitor blood work and close outpatient followup. MMODL / IJN: [id number] /
--- NOTE | 2020-10-06 16:56 | P.PN ---
Subjective Progress Note Date: 10/06/20 Principal diagnosis: COVID-19 infection, loculated fluid collection in the right posterior chest, empyema 80-year-old male, who presents to the emergency department, on September 30, complaining of chest pain, and weakness. The patient states she has not been feeling well for a number of months now, maybe 2. The patient denies any pain. He is coughing. He feels like his breathing is impaired. He's also had significant weight loss over the last couple of months. There is no fever or chills. He denies any nausea, vomiting, diarrhea, or abdominal pain. He denies any genitourinary complaints. The patient was seen in the emergency room, in ER room 19. The patient was on room air. He was not receiving any IV fluids. Chest x-ray revealed a masslike infiltrate in the right lung. On computed tomography scan, there is a loculated fluid collection in the right lung, which is quite extensive. White count 28.9, hemoglobin 11.4, hematocrit 36.1, platelet count 489,000. PT, INR, PTT is normal. Sodium 133, potassium 4.9, chlorides 99, CO2 23, anion gap 11, BUN 37, creatinine 1.52. AST 95, and OT 141. N-terminal proBNP 1420. Urine is essentially negative. Coronavirus testing was positive. On 10/02/2020 patient is status post right chest pigtail chest tube placement into the loculated parapneumonic pleural effusion with drainage of approximately 1100 cc of purulent drainage, pleural fluid analysis showed LDH of greater than 4500, 94,000 . Nucleated cells, 91 of PMNs, glucose of less than 4 and fluid total protein of 3800 consistent with exudative fluid related to empyema. Currently sitting up in a chair, on room air, pulse ox of 95%, he is afebrile, he does get short of breath with exertion, but seems to be in no acute distress, no chest discomfort, of note patient did test positive for COVID-19. Not requiring any supplemental oxygen, today's chest x-ray shows improved right sided pleural effusion, and patchy right basilar atelectasis and/or infiltrate. Today's labs show improving leukocytosis, with white blood cell count down to 16.5, hemoglobin is 10.4, electrolytes and renal profile were improved on today's labs, with BUN of 27 creatinine is 1.08. The patient continues to be on Zosyn for antibiotic coverage, On 10/03/2020 patient seen in follow-up on medical surgical floor, he is resting in bed, currently on room air, denies any worsening dyspnea, room air pulse ox is 96-97%, he is afebrile, hemodynamically he is stable, breathing is nonlabored, he has a right chest pigtail chest tube in place connected to the Pleur-evac, and there has been an additional 100-150 ML of serous fluid in the last 24 hours. His chest x-ray shows right basilar pleural catheter in place, no evidence of pneumothorax, and patchy right basilar density is unchanged. Pleural fluid cytology shows no cytologically malignant cells, and was positive for dense acute inflammatory cells consistent with empyema. Cultures are negative thus far. Patient remains on Zosyn for empiric antibiotic coverage. Today's labs have been reviewed On 10/04/2020 patient seen in follow-up on medical surgical floor, he is awake and alert, the right chest pigtail catheter is draining thin serosanguineous output, and patient had about 250 mL of pleural fluid in the last 24 hours, and the Pleur-evac has been changed out. Today's chest x-ray shows basilar atelec tasis and minimal residual effusion, stable chest tube. Leukocytosis is improving, white blood cell count is 9.7, hemoglobin is 11.1, d-dimer is down to 3.63, BMP is pending, LDH is 517, and CRP is 8.7, pro calcitonin level came back at 0.31, pleural fluid cultures are pending, Gram stain was positive for many gram-negative bacilli. Patient is currently covered with Zosyn, complaints of chest discomfort, no fever or chills, not requiring any supplemental oxygen On 10/06/2020 patient seen in follow-up on medical surgical floor. He is breathing comfortably, he is on room air, he is ambulating to the bathroom, his chest tube has been discontinued, rare pulse ox is 96%, no fever or chills, his pleural fluid cultures revealed anaerobic gram-negative bacilli, blood cultures were negative, patient inadvertently pulled out the pigtail catheter in his right chest 2 nights ago, continues to remain in no acute distress, continues to be afebrile, and not requiring any supplemental oxygen, patient was treated with Unasyn for empyema, today's chest x-ray shows mild chronic emphysematous and pu lmonary fibrotic changes with right basilar pleural fluid collection and associated right lower lung atelectasis and/or infiltrate. Clinically remains stable, and discharge is pending for today Objective - Vital Signs Vital signs: Vital Signs Temp 98.6 F 10/06/20 13:45 Pulse 60 10/06/20 13:45 Resp 16 10/06/20 13:45 BP 115/66 10/06/20 13:45 Pulse Ox 96 10/06/20 13:45 Intake & Output 10/05/20 10/06/20 10/06/20 18:59 06:59 18:59 Other: Voiding Method Urinal Urinal # Voids 4 3 # Bowel Movements 5 - Exam GENERAL EXAM: Alert, very pleasant, 80-year-old white male, on room air, with a pulse ox between 96-97% comfortable in no apparent distress. HEAD: Normocephalic/atraumatic. EYES: Normal reaction of pupils, equal size. Conjunctiva pink, sclera white. NOSE: Clear with pink turbinates. THROAT: No erythema or exudates. NECK: No masses, no JVD, no thyroid enlargement, no adenopathy. CHEST: No chest wall deformity. Symmetrical expansion. Right-sided pigtail chest tube catheter was discontinued 2 nights ago, when he was inadvertently pu lled out LUNGS: Equal air entry with no crackles, wheeze, rhonchi or dullness. CVS: Regular rate and rhythm, normal S1 and S2, no gallops, no murmurs, no rubs ABDOMEN: Soft, nontender. No hepatosplenomegaly, normal bowel sounds, no guarding or rigidity. EXTREMITIES: No clubbing, no edema, no cyanosis, 2+ pulses and upper and lower extremities. MUSCULOSKELETAL: Muscle strength and tone normal. SPINE: No scoliosis or deformity SKIN: No rashes CENTRAL NERVOUS SYSTEM: Alert and oriented -3. No focal deficits, tone is normal in all 4 extremities. PSYCHIATRIC: Alert and oriented -3. Appropriate affect. Intact judgment and insight. - Labs CBC & Chem 7: 10/06/20 07:21 10/04/20 07:53 Labs: Abnormal Lab Results - Last 24 Hours (Table) 10/06/20 Range/Units 07:21 RBC 3.30 L (4.40-5.60) X 10*6/uL Hgb 10.0 L (13.0-17.0) g/dL Hct 30.6 L (39.6-50.0) % Immature Gran # 0.08 H (0.00-0.04) X 10*3/uL Microbiology - Last 24 Hours (Table) 09/30/20 17:59 Blood Culture - Preliminary Blood No Growth after 120 hours 09/30/20 17:55 Blood Culture - Preliminary Blood No Growth after 120 hours 10/01/20 15:15 Gram Stain - Final Pleural Fluid Body Fluid Culture - Final Assessment and Plan Plan: Assessment: #1. Large loculated right chest pleural effusion, parapneumonic, status post insertion of right pleural Chest tube catheter with drainage of 1100 mL of purulent drainage, pleural fluid analysis reveals empyema, cultures are currently pending, patient is covered with Zosyn, cytology showed dense acute i nflammatory cells consistent with empyema, and no malignant cells. Pleural fluid cultures showed aerobic gram-negative bacilli patient was initially treated with Zosyn, which was later switched to Unasyn. His tube was discontinued on 10/04/2020 when it was inadvertently pulled out #2. COVID-19 infection without lung infiltrates, and without hypoxemia #3. Acute kidney injury improving with IV hydration #4. History of coronary artery disease #5. Hypertension #6. Hyperlipidemia #7. Gout #8. Prostate disorder #9. Nonsmoker Plan: Clinically remains stable Today's chest x-ray has been reviewed, No Fever or chills Patient is clinically stable, Stable for discharge home from pulmonary perspective He is maintaining stable O2 saturations on room air Home with antibiotics of ID service's recommendations No need for steroids Follow-up with Dr. Quinones in one week I performed a history & physical examination of the patient and discussed their management with my nurse practitioner, Charley Prajapati. I reviewed the nurse practitioner's note and agree with the documented findings and plan of care. Lung sounds are positive for diminished breath sounds. The findings and the impression was discussed with the patient. I attest to the documentation by the nurse practitioner. Time with Patient: Less than 30
--- NOTE | 2020-10-06 17:08 | IR ---
EXAMINATION TYPE: IR cvc insert >=5 years DATE OF EXAM: 10/06/2020 COMPARISON: NONE HISTORY: Infection, needs long-term intravenous access for therapy FINDINGS: Maximal barrier technique was utilized. Hand hygiene obtained with soap and water and alco hol-based hand rub. The skin overlying the right basilic vein was localized with ultrasound and noted to be compressible and patent by ultrasound. An ultrasound image was obtained and submitted on [place] ent's chart. Sterile technique utilized with the ultrasound machine. The skin overlying was prepped a nd draped and Lidocaine used for local anesthesia. A skin carlos was made with a scalpel. Access was gained to the vein under direct ultrasound guidance with a 21-gauge needle and a 0.018 inch wire was advanced. Access site was dilated with a peel-away sheath and the catheter tailored to length. Cath eter advanced centrally and a post procedure chest x-ray verified placement with tip at the superior vena cava. Catheter was fixed to the skin and a sterile dressing placed. Hemostasis achieved and th e catheter was aspirated and flushed with sterile saline. The patient remained in stable condition. IMPRESSION: STATUS POST ULTRASOUND GUIDED PICC LINE PLACEMENT, READY FOR USE. THIS PROCEDURE WAS PER FORMED BY THE UNDERSIGNED.
--- NOTE | 2020-10-06 17:38 | XR ---
EXAMINATION TYPE: XR chest 1V confirm line [facility] DATE OF EXAM: 10/06/2020 COMPARISON: Chest x-ray same dated earlier time HISTORY: PICC line placement TECHNIQUE: Single frontal view of the chest is obtained. FINDINGS: Interval placement of right-sided PICC line, distal tip is overlying the cavoatrial juncti on level. No pneumothorax. IMPRESSION: No evident complication status post PICC line placement
== END 2020-10-06 17:46 | disposition home or self-care (01) | DRG 177 ==
LOC: EC 15:11 → 4SSUR 20:17
PROVIDERS: ADMIT Family Medicine; ATTEND Family Medicine
PROC: 0W9930Z Drainage of Right Pleural Cavity with Drainage Device, Percutaneous Approach (ICD-10-PCS; principal; 2020-10-01)
PROC: 02HV33Z Insertion of Infusion Device into Superior Vena Cava, Percutaneous Approach (ICD-10-PCS; 2020-10-06)
DX: J85.1 Abscess of lung with pneumonia (principal); U07.1 COVID-19; J91.8 Pleural effusion in other conditions classified elsewhere; N17.9 Acute kidney failure, unspecified; J98.11 Atelectasis; E87.1 Hypo-osmolality and hyponatremia; E78.5 Hyperlipidemia, unspecified; I10 Essential (primary) hypertension; I25.10 Atherosclerotic heart disease of native coronary artery without angina pectoris; N42.9 Disorder of prostate, unspecified; M10.9 Gout, unspecified; N40.0 Benign prostatic hyperplasia without lower urinary tract symptoms; D64.9 Anemia, unspecified; E83.51 Hypocalcemia; E88.09 Other disorders of plasma-protein metabolism, not elsewhere classified; Z82.5 Family history of asthma and other chronic lower respiratory diseases; T17.928A Food in respiratory tract, part unspecified causing other injury, initial encounter; Z79.899 Other long term (current) drug therapy
CPT/HCPCS: 32551; 36415; 36573; 71045; 71046; 71260; 71275; 74177; 76604; 76942; 80048; 80053; 81001; 82945; 83605; 83615; 83735; 83880; 84145; 84157; 84484; 85025; 85027; 85379; 85610; 85730; 86140; 87040; 87070; 87075; 87102; 87116; 87205; 87206; 87324; 87635; 88108; 88305; 89050; 93005; 93970; 96361; 96374; 99285

== ENCOUNTER → 2020-11-21 | Outpatient (CLI) | payer MEDICARE ==
--- NOTE | 2020-11-23 10:55 | CT ---
EXAMINATION TYPE: CT chest wo con DATE OF EXAM: 11/21/2020 COMPARISON: 10/04/2020 HISTORY: pyothorax without fistula CT DLP: 342.7 mGycm, Automated exposure control for dose reduction was used. CONTRAST: Performed injected with 0 mL of Isovue 300. TECHNIQUE: Axial images were obtained at 5 mm thick sections. Reconstructed images are reviewed on [employer] computer in the coronal plane. FINDINGS: Portion of the thyroid visualized is normal. There is a 0.2 cm nodule within the posterior left upper lobe present previously there are some perip heral nodules in the bilateral lungs example image series 4 image 9 there is a 0.4 cm nodule posterio r lateral right upper lobe. Present previously series 4 image 16 measures 0.1 cm nodule within the pe riphery of the right anterior upper lung field. Series 4 image 19 present previously. Pneumatoceles w ithin the right upper lobe. Some mild pneumonitis changes anterior to the major fissure could be atelectasis with deviation of th e major fissure. There is a rounded density within the posterior right lung base measuring 6.1 x 7.1 cm. This has enla rged from comparison. Some adjacent compressive atelectasis is present. No enlarged mediastinal or hilar adenopathy is evident. The ascending aorta diameter at the level o f the main pulmonary artery is 4.1 cm. The main pulmonary artery diameter at the bifurcation is 3.0 cm. Moderate coronary artery calcification is present. Limited CT sections are obtained through the upper abdomen. There is a 4.3 cm cyst measuring 9 Hounsf ield units on the posterior lateral right kidney. IMPRESSIONS: 1. Enlarging loculated collection posterior medial right lung base. 2. Ascending thoracic aortic aneurysm. 3. Stable appearing multiple upper lung field peripheral nodules less than 0.4 cm in size.
== END | disposition home or self-care (01) ==
LOC: RADCTMAIN 08:33
PROVIDERS: ATTEND Internal Medicine Infectious Disease
DX: R91.8 Other nonspecific abnormal finding of lung field (principal); I71.2 Thoracic aortic aneurysm, without rupture
CPT/HCPCS: 71250

== ENCOUNTER 2021-05-28 10:21 | Day surgery (SDC) | payer BC, MEDICARE ==
[2021-05-26 16:08] VITALS: BMI 27.1
[~2021-05-28 10:21] MED LIST: LIDOCAINE 1% (10MG/ML) FOR IV START INTRADERMA PRN
[2021-05-28 12:19] VITALS: RESP 16; TEMP 96.8
[2021-05-28] MEDS: LACTATED RINGERS 1,000 ML IV SCH ×2 (12:25→13:03)
[2021-05-28] MEDS ORDERED: LIDOCAINE 1% INJ 10MG/ML (20 ML MDV) ONE (13:08)
[2021-05-28] MEDS ORDERED: PROPOFOL 10 MG/ML 20 ML VIAL IV ONE (13:08)
--- NOTE | 2021-05-28 13:10 | P.GSHP ---
History of Present Illness H&P Date: 05/28/21 Chief Complaint: Dysphagia This is a 81-year-old male presents today for EGD. He's had issues with dysphagia. Past Medical History Past Medical History: Coronary Artery Disease (CAD), Hyperlipidemia, Hypertension, Prostate Disorder Additional Past Medical History / Comment(s): gout, dysphagia for few months w/solids, chronic bronchitis since covid September 2020, enlarged prostate History of Any Multi-Drug Resistant Organisms: None Reported Past Surgical History: Appendectomy, Orthopedic Surgery Additional Past Surgical History / Comment(s): ORIF right ankle Past Anesthesia/Blood Transfusion Reactions: No Reported Reaction Smoking Status: Never smoker - Past Family History Mother Family Medical History: Cancer Father Family Medical History: COPD Medications and Allergies Home Medications Medication Instructions Recorded Confirmed Type Allopurinol [Zyloprim] 300 mg PO HS 09/30/20 05/28/21 History Aspirin EC [Ecotrin Low Dose] 81 mg PO HS 09/30/20 05/28/21 History Finasteride [Proscar] 5 mg PO HS 09/30/20 05/28/21 History Simvastatin [Zocor] 20 mg PO HS 09/30/20 05/28/21 History atenoloL 25 mg PO HS 09/30/20 05/28/21 History Albuterol Sulfate [Albuterol 1 - 2 puff PO Q4-6H PRN 05/26/21 05/28/21 History Sulfate Hfa] Beclomethasone Dipropionate [Qvar 2 puff PO BID 05/26/21 05/28/21 History 80mcg Redihaler] Benazepril HCl [Lotensin] 20 mg PO HS 05/26/21 05/28/21 History Allergies Allergy/AdvReac Type Severity Reaction Status Date / Time No Known Allergies Allergy Verified 05/26/21 16:08 Surgical - Exam Vital Signs Temp Pulse Resp BP Pulse Ox 96.8 F L 61 16 149/71 94 L 05/28/21 12:14 05/28/21 12:14 05/28/21 12:14 05/28/21 12:14 05/28/21 12:14 - General well developed, well nourished, no distress - Eyes PERRL - ENT normal pinna - Neck no masses - Respiratory normal expansion - Cardiovascular Rhythm: regular - Abdomen Abdomen: soft, non tender Assessment and Plan Assessment: Dysphagia. We'll perform EGD.
--- NOTE | 2021-05-28 13:22 | P.OP ---
Date of Procedure: 05/28/21 Preoperative Diagnosis: Dysphagia Postoperative Diagnosis: Antral gastritis Procedure(s) Performed: EGD Anesthesia: MAC Surgeon: Graeme Mabry Pathology: other (Antrum) Condition: stable Disposition: PACU Description of Procedure: The patient's placed on the endoscopy table in the lateral position he received IV sedation. The gastroscope placed oropharynx passed in the esophagus and stomach. Scope was then placed through the pylorus. The first and second portion of the duodenum appeared normal. Scope was brought back the antrum was mildly inflamed. Biopsies performed. Scope was then brought back the stomach and the remainder some appeared normal. The GE junction was at 40 cm the distal esophagus was mildly inflamed. A biopsies performed. The proximal esophagus appeared normal. The esophagus appears to have some twisting. It was unsure if this is causing her dysphagia. The scope was withdrawn for patient. Patient was scheduled for esophagram upper GI due to his dysphagia
[2021-05-28 13:46] VITALS: BP 147/87; PULSE 62
== END 2021-05-28 14:07 ==
LOC: ORWHC2ENDO 10:21
PROVIDERS: ATTEND Surgery
DX: R13.10 Dysphagia, unspecified (principal); K29.70 Gastritis, unspecified, without bleeding; I25.10 Atherosclerotic heart disease of native coronary artery without angina pectoris; E78.5 Hyperlipidemia, unspecified; I10 Essential (primary) hypertension; N40.0 Benign prostatic hyperplasia without lower urinary tract symptoms; M10.9 Gout, unspecified; Z86.16 Personal history of COVID-19; Z90.49 Acquired absence of other specified parts of digestive tract; Z98.890 Other specified postprocedural states; Z80.9 Family history of malignant neoplasm, unspecified; Z82.5 Family history of asthma and other chronic lower respiratory diseases; Z79.82 Long term (current) use of aspirin; Z79.51 Long term (current) use of inhaled steroids; Z79.899 Other long term (current) drug therapy
CPT/HCPCS: 88305; 43239; J2001; J2704

== ENCOUNTER → 2021-06-08 | Outpatient (CLI) | payer MEDICARE ==
--- NOTE | 2021-06-08 16:10 | FL ---
EXAMINATION TYPE: FL UGI air w esophagus DATE OF EXAM: 06/08/2021 COMPARISON: None HISTORY: Dysphagia, food getting stuck TECHNIQUE: Double air contrast technique was utilized to evaluate the esophagus and upper GI. FINDINGS: Esophagus: Esophagus dilates to normal caliber. Multiple tertiary contractions are evident within the distal esophagus. Correlate for a corkscrew esophagus (Nutcracker esophagus). Some longitudinal impr ession along the proximal esophagus may be present. Correlate for varices. There is incomplete stripp ing of the esophageal bolus. Secondary contraction was evident. Fundus body and antrum of the stomach visualized appear normal. No intraluminal or extramural defect is evident. Barium readily empties into the normally positioned duodenal cap and sweep. Fluoroscopy time: 42 seconds Images: 209 IMPRESSION: 1. Upper GI portion of the exam is normal. 2. Gastroesophageal reflux in the distal esophagus. 3. Presbyesophagus. Clinical correlation recommended for Corkscrew or "nutcracker esophagus". 4. Some proximal varices may be present. Consider EGD.
== END | disposition home or self-care (01) ==
LOC: RADUSWWP 08:19
PROVIDERS: ATTEND Surgery
DX: K21.9 Gastro-esophageal reflux disease without esophagitis (principal); K22.89 Other specified disease of esophagus
CPT/HCPCS: 74246

== ENCOUNTER 2022-05-24 13:55 | Observation (INO) | payer MEDICARE ==
[2022-05-24] MEDS ORDERED: SODIUM CHLORIDE 0.9% 1,000 ML IV STA (17:24)
[2022-05-24] MEDS ORDERED: DEXAMETHASONE SOD PHOSPHATE 10 MG/ML 1 ML VIAL IVP STA (17:25)
--- NOTE | 2022-05-24 17:31 | ED ---
ENT HPI - General Chief complaint: ENT Stated complaint: weakness, dysphagia Time Seen by Provider: 05/24/22 16:53 Source: patient Mode of arrival: ambulatory Limitations: no limitations - History of Present Illness Initial comments: Patient is a 82-year-old male presents to the emergency department with a chief complaint of dysphagia. Patient has chronic dysphagia. He was diagnosed with presbyesophagus via barium swallow study in May last year by Dr. Mabry. He was also diagnosed with anginal gastritis and placed on omeprazole. Patient states he was referred to Dr. Arvizu however he was unable to make his appointment in April. Patient has an appointment in June. He presents today due to inability to tolerate oral intake. Patient states for the past 3 days he has been unable to keep down water and his medication. Patient feels thatit is getting stuck in his esophagus. He does not have throat pain. Patient reports generalized weakness which she believes is due to decreased oral intake. He denies fever, chills, chest pain, shortness of breath, abdominal pain, constipation, diarrhea, burning with urination. - Related Data Home Medications Medication Instructions Recorded Confirmed Finasteride [Proscar] 5 mg PO DAILY 09/30/20 05/24/22 Simvastatin [Zocor] 20 mg PO DAILY 09/30/20 05/24/22 allopurinoL [Zyloprim] 300 mg PO DAILY 09/30/20 05/24/22 atenoloL 25 mg PO DAILY 09/30/20 05/24/22 Albuterol Sulfate [Albuterol 2 puff PO RT-Q6H PRN 05/26/21 05/24/22 Sulfate Hfa] Benazepril HCl [Lotensin] 20 mg PO DAILY 05/26/21 05/24/22 Omeprazole [PriLOSEC] 40 mg PO DAILY 05/24/22 05/24/22 Sildenafil Citrate 50 mg PO DAILY PRN 05/24/22 05/24/22 Allergies Allergy/AdvReac Type Severity Reaction Status Date / Time No Known Allergies Allergy Verified 05/24/22 14:20 Review of Systems ROS Statement: Those systems with pertinent positive or pertinent negative responses have been documented in the HPI. ROS Other: All systems not noted in ROS Statement are negative. Past Medical History Past Medical History: Coronary Artery Disease (CAD), Hyperlipidemia, Hypertension, Prostate Disorder Additional Past Medical History / Comment(s): gout, dysphagia for few months w/solids, chronic bronchitis since covid September 2020, enlarged prostate History of Any Multi-Drug Resistant Organisms: None Reported Past Surgical History: Appendectomy, Orthopedic Surgery Additional Past Surgical History / Comment(s): ORIF right ankle Past Anesthesia/Blood Transfusion Reactions: No Reported Reaction Past Psychological History: No Psychological Hx Reported Smoking Status: Never smoker Past Alcohol Use History: Occasional Past Drug Use History: None Reported - Past Family History Mother Family Medical History: Cancer Father Family Medical History: COPD General Exam Limitations: no limitations General appearance: alert, in no apparent distress Head exam: Present: atraumatic, normocephalic, normal inspection Eye exam: Present: normal appearance, PERRL, EOMI. Absent: scleral icterus, conjunctival injection, periorbital swelling ENT exam: Present: mucous membranes dry, other (no stridor ) Neck exam: Present: normal inspection, full ROM. Absent: tenderness Course Vital Signs 05/24/22 14:17 Temperature 97.9 F Pulse Rate 77 Respiratory 16 Rate Blood Pressure 93/60 O2 Sat by Pulse 97 Oximetry Medical Decision Making - Medical Decision Making This is an 82-year-old presenting with dysphagia. Patient appears dehydrated, blood pressure 93/60. Laboratory studies obtained.There is renal impairment, creatinine at 1.38, BUN elevated at 38. Patient given fluid bolus and Decadron. Case discussed with Dr Gay who accepts admission. GI on consult. Dr. Matias is my attending. - Lab Data Result diagrams: 05/24/22 17:47 05/24/22 17:47 Lab Results 05/24/22 05/24/22 Range/Units 17:47 17:47 WBC 7.6 (3.8-10.6) k/uL RBC 4.22 L (4.30-5.90) m/uL Hgb 13.5 (13.0-17.5) gm/dL Hct 40.3 (39.0-53.0) % MCV 95.6 (80.0-100.0) fL MCH 32.1 (25.0-35.0) pg MCHC 33.5 (31.0-37.0) g/dL RDW 13.3 (11.5-15.5) % Plt Count 197 (150-450) k/uL MPV 8.9 Neutrophils % 68 % Lymphocytes % 20 % Monocytes % 7 % Eosinophils % 1 % Basophils % 1 % Neutrophils # 5.2 (1.3-7.7) k/uL Lymphocytes # 1.5 (1.0-4.8) k/uL Monocytes # 0.5 (0-1.0) k/uL Eosinophils # 0.1 (0-0.7) k/uL Basophils # 0.1 (0-0.2) k/uL Sodium 144 (137-145) mmol/L Potassium 4.6 (3.5-5.1) mmol/L Chloride 106 (98-107) mmol/L Carbon Dioxide 30 (22-30) mmol/L Anion Gap 8 mmol/L BUN 38 H (9-20) mg/dL Creatinine 1.38 H (0.66-1.25) mg/dL Est GFR (CKD-EPI)AfAm 55 (>60 ml/min/1.73 sqM) Est GFR (CKD-EPI)NonAf 48 (>60 ml/min/1.73 sqM) Glucose 105 H (74-99) mg/dL Calcium 11.2 H (8.4-10.2) mg/dL Total Bilirubin 0.8 (0.2-1.3) mg/dL AST 44 (17-59) U/L ALT 24 (4-49) U/L Alkaline Phosphatase 76 (38-126) U/L Total Protein 7.6 (6.3-8.2) g/dL Albumin 4.6 (3.5-5.0) g/dL Disposition Clinical Impression: Presbyesophagus, Dysphagia, Generalized weakness, Dehydration Disposition: ADMITTED IP TO THIS HOSP Condition: Good Referrals: Ryan Gay MD [Primary Care Provider] - 1-2 days Decision Time: 17:33
[2022-05-24 17:58] LABS: Basophils # (A) 0.1 k/uL (0-0.2); Basophils % (A) 1 %; Eosinophils # (A) 0.1 k/uL (0-0.7); Eosinophils % (A) 1 %; HCT 40.3 % (39.0-53.0); HGB 13.5 gm/dL (13.0-17.5); Lymphocytes # (A) 1.5 k/uL (1.0-4.8); Lymphocytes % (A) 20 %; MCH 32.1 pg (25.0-35.0); MCHC 33.5 g/dL (31.0-37.0); MCV 95.6 fL (80.0-100.0); Mean Platelet Volume 8.9; Monocytes # (A) 0.5 k/uL (0-1.0); Monocytes % (A) 7 %; Neutrophils # (A) 5.2 k/uL (1.3-7.7); Neutrophils % (A) 68 %; Platelet Count 197 k/uL (150-450); RBC 4.22 m/uL (4.30-5.90); RDW 13.3 % (11.5-15.5); WBC 7.6 k/uL (3.8-10.6)
[2022-05-24 18:11] LABS: Albumin 4.6 g/dL (3.5-5.0); Calcium 11.2 mg/dL (8.4-10.2); Potassium 4.6 mmol/L (3.5-5.1); Total Bilirubin 0.8 mg/dL (0.2-1.3); Total Protein 7.6 g/dL (6.3-8.2)
[2022-05-24] MEDS: SODIUM CHLORIDE 0.9% 1,000 ML IV SCH (19:44)
[2022-05-25] MEDS ORDERED: ALBUTEROL NEBULIZED 2.5 MG/3 ML INHALATION PRN (08:04)
[2022-05-25] MEDS ORDERED: NON FORMULARY DRUG (Sildenafil Citrate [Sildenafil Citrate] 50 MG Tablet) PO PRN (08:04)
[2022-05-25] MEDS ORDERED: ENALAPRILAT 1.25 MG/ML 1 ML VIAL IVP PRN (08:29)
--- NOTE | 2022-05-25 08:34 | P.HPIM ---
History of Present Illness H&P Date: 05/25/22 Chief Complaint: Poor PO intake This is an 82-year-old white male with dysphagia. He saw my nurse practitioner yesterday after 5 days of inability to tolerate appropriate by mouth intake. He states his pills but get caught in his esophagus and he would regurgitate his products. Liquids were seemingly tolerated but he's not been able to eat solid food in about 4-5 days. I suspect constriction given his history but he has history of presbyesophagus in the past. Significant weight loss is noted over the last month or so. Underlying history of hypertension. Review of Systems Constitutional: Denies chills, Denies fever Eyes: denies blurred vision, denies pain Ears, nose, mouth and throat: Reports as per HPI, Reports dysphagia, Denies headache, Denies sore throat Cardiovascular: Denies chest pain, Denies shortness of breath Respiratory: Denies cough Gastrointestinal: Reports as per HPI Past Medical History Past Medical History: Coronary Artery Disease (CAD), Hyperlipidemia, Hypertension, Prostate Disorder Additional Past Medical History / Comment(s): gout, dysphagia for few months w/solids, chronic bronchitis since covid September 2020, enlarged prostate History of Any Multi-Drug Resistant Organisms: None Reported Past Surgical History: Appendectomy, Orthopedic Surgery Additional Past Surgical History / Comment(s): ORIF right ankle Past Anesthesia/Blood Transfusion Reactions: No Reported Reaction Past Psychological History: No Psychological Hx Reported Smoking Status: Never smoker Past Alcohol Use History: Occasional Additional Past Alcohol Use History / Comment(s): Admits to 2-3 drinks 3 times a week, states he's had none in a week Past Drug Use History: None Reported Additional Drug Use History / Comment(s): occasional use - Past Family History Mother Family Medical History: Cancer Father Family Medical History: COPD Medications and Allergies Home Medications Medication Instructions Recorded Confirmed Type Finasteride [Proscar] 5 mg PO DAILY 09/30/20 05/24/22 History Simvastatin [Zocor] 20 mg PO DAILY 09/30/20 05/24/22 History allopurinoL [Zyloprim] 300 mg PO DAILY 09/30/20 05/24/22 History atenoloL 25 mg PO DAILY 09/30/20 05/24/22 History Albuterol Sulfate [Albuterol 2 puff PO RT-Q6H PRN 05/26/21 05/24/22 History Sulfate Hfa] Benazepril HCl [Lotensin] 20 mg PO DAILY 05/26/21 05/24/22 History Omeprazole [PriLOSEC] 40 mg PO DAILY 05/24/22 05/24/22 History Sildenafil Citrate 50 mg PO DAILY PRN 05/24/22 05/24/22 History Allergies Allergy/AdvReac Type Severity Reaction Status Date / Time No Known Allergies Allergy Verified 05/24/22 14:20 Physical Exam Vitals: Vital Signs Temp Pulse Pulse Resp BP BP Pulse Ox 05/25/22 07:38 97.4 F L 72 18 143/80 97 05/25/22 01:50 78 18 120/74 95 05/25/22 01:47 78 18 05/24/22 19:58 70 163/84 98 05/24/22 14:17 97.9 F 77 16 93/60 97 Intake and Output 05/24/22 05/25/22 05/25/22 22:59 06:59 14:59 Output Total 400 Balance -400 Output: Urine 400 Other: Voiding Method Urinal # Voids 0 Weight 84.822 kg - Constitutional General appearance: no acute distress - EENT Eyes: EOMI - Neck Neck: no lymphadenopathy - Respiratory Respiratory: bilateral: CTA - Cardiovascular Rhythm: regular Heart sounds: normal: S1, S2 Abnormal Heart Sounds: no S3 Gallop - Gastrointestinal General gastrointestinal: soft, no tenderness - Psychiatric Psychiatric: A&O x's 3 Results CBC & Chem 7: 05/24/22 17:47 05/24/22 17:47 Labs: Abnormal Lab Results - Last 24 Hours (Table) 05/24/22 05/24/22 Range/Units 17:47 17:47 RBC 4.22 L (4.30-5.90) m/uL BUN 38 H (9-20) mg/dL Creatinine 1.38 H (0.66-1.25) mg/dL Glucose 105 H (74-99) mg/dL Calcium 11.2 H (8.4-10.2) mg/dL Thrombosis Risk Factor Assmnt - Choose All That Apply Each Risk Factor Represents 3 Points: Age 75 years or older Thrombosis Risk Factor Assessment Total Risk Factor Score: 3 Thrombosis Risk Factor Assessment Level: Moderate Risk Assessment and Plan (1) Dehydration Current Visit: Yes Status: Acute Code(s): E86.0 - DEHYDRATION SNOMED Code (s): 99090587 (2) Dysphagia Current Visit: Yes Status: Acute Code(s): R13.10 - DYSPHAGIA, UNSPECIFIED SNOMED Code(s): 18207770 (3) Presbyesophagus Current Visit: Yes Status: Acute Code(s): K22.89 - OTHER SPECIFIED DISEASE OF ESOPHAGUS SNOMED Code(s): 620179215 Plan: Appreciate GI input. Probable need for EGD with possible dilatation. Place on Vasotec IV for blood pressure. I will restart his home by mouth medications but I suspect given his history that we will probably withhold by mouth medication after trial. See orders otherwise. The patient is otherwise full code
[2022-05-25] MEDS ORDERED: PANTOPRAZOLE 40 MG TABLET PO SCH (09:00)
[2022-05-25] MEDS: SODIUM CHLORIDE 0.9% 1,000 ML IV SCH (09:57)
--- NOTE | 2022-05-25 10:47 | P.CONS ---
History of Present Illness - Reason for Consult Consult date: 05/25/22 Dysphagia Requesting physician: Ryan Gay - Chief Complaint Difficulty swallowing - History of Present Illness This is an 82-year-old male with a past medical history of dysphagia, coronary artery disease, hyperlipidemia, hypertension and prostate disorder who came into the emergency department with complaints of difficulty swallowing pills and solids. Patient states this has been going on for over one year now. He's lost 50 pounds over the last 1 year. He has seen Dr. Mabry in the past for his dysphagia and underwent an EGD on 05/28/2021 revealing antral gastritis. 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 He states that over last 4-5 days his swelling has gotten worse to the point that if he takes his pills and then later drinks water he says that it feels that the pills were lodged and then he vomits and they come right back up. He otherwise states water will go down fine as long as he does not eat or take his pills. He denies any abdominal pain, nausea or vomiting. His colonoscopy was 31 years ago. Review of Systems REVIEW OF SYSTEMS: CARDIOPULMONARY: No chest pain or shortness of breath. Gastrointestinal: No epigastric pain or abdominal pain. Patient does have d ifficulty with swallowing solids and pills. Reported weight loss of 50 pounds over the last one years duration. Vomiting after eating or taking pills. No hematemesis, coffee-ground emesis. No rectal bleeding, or melena. GENITOURINARY: No dysuria or hematuria. MUSCULOSKELETAL: Reports normal range of motion. Joint pain. SKIN: No rashes. No jaundice. ENDOCRINE: No chills, fevers. No excessive weight gain or loss. No polydipsia or polyuria. PSYCHIATRIC: Unremarkable. NEUROLOGY: No change in mental status. Denies dizziness, headache. ENT: Vision unremarkable. CONSTITUTIONAL: 50 pound weight loss over last 1 year duration. No fever, chills, night sweats. Past Medical History Past Medical History: Coronary Artery Disease (CAD), Hyperlipidemia, Hypertension, Prostate Disorder Additional Past Medical History / Comment(s): gout, dysphagia for few months w/solids, chronic bronchitis since covid September 2020, enlarged prostate History of Any Multi-Drug Resistant Organisms: None Reported Past Surgical History: Appendectomy, Orthopedic Surgery Additional Past Surgical History / Comment(s): ORIF right ankle Past Anesthesia/Blood Transfusion Reactions: No Reported Reaction Past Psychological History: No Psychological Hx Reported Smoking Status: Never smoker Past Alcohol Use History: Occasional Additional Past Alcohol Use History / Comment(s): Admits to 2-3 drinks 3 times a week, states he's had none in a week Past Drug Use History: None Reported Additional Drug Use History / Comment(s): occasional use - Past Family History Mother Family Medical History: Cancer Father Family Medical History: COPD Medications and Allergies Home Medications Medication Instructions Recorded Confirmed Type Finasteride [Proscar] 5 mg PO DAILY 09/30/20 05/24/22 History Simvastatin [Zocor] 20 mg PO DAILY 09/30/20 05/24/22 History allopurinoL [Zyloprim] 300 mg PO DAILY 09/30/20 05/24/22 History atenoloL 25 mg PO DAILY 09/30/20 05/24/22 History Albuterol Sulfate [Albuterol 2 puff PO RT-Q6H PRN 05/26/21 05/24/22 History Sulfate Hfa] Benazepril HCl [Lotensin] 20 mg PO DAILY 05/26/21 05/24/22 History Omeprazole [PriLOSEC] 40 mg PO DAILY 05/24/22 05/24/22 History Sildenafil Citrate 50 mg PO DAILY PRN 05/24/22 05/24/22 History Allergies Allergy/AdvReac Type Severity Reaction Status Date / Time No Known Allergies Allergy Verified 05/24/22 14:20 Physical Exam Vitals: Vital Signs Temp Pulse Pulse Resp BP BP Pulse Ox 05/25/22 07:38 97.4 F L 72 18 143/80 97 05/25/22 01:50 78 18 120/74 95 05/25/22 01:47 78 18 05/24/22 19:58 70 163/84 98 05/24/22 14:17 97.9 F 77 16 93/60 97 Intake and Output 05/24/22 05/25/22 05/25/22 22:59 06:59 14:59 Output Total 400 Balance -400 Output: Urine 400 Other: Voiding Method Urinal # Voids 0 Weight 84.822 kg General appearance: The patient is alert, oriented, appears in no acute distress. HET: Head is normocephalic and atraumatic. Conjunctiva pink. Sclera anicteric. Neck: Supple without lymphadenopathy. Trachea midline. Heart: S1 S2. Regular rate and rhythm. Lungs: Clear to auscultation. Abdomen: Soft, nontender, nondistended with bowel sounds. No guarding or rig idity. Skin: No rashes. No jaundice. Extremities: Normal skin color and turgor. No pedal edema. Neurological: No focal deficits. Alert and oriented x3. Results CBC & Chem 7: 05/24/22 17:47 05/24/22 17:47 Labs: Abnormal Lab Results - Last 24 Hours (Table) 05/24/22 05/24/22 Range/Units 17:47 17:47 RBC 4.22 L (4.30-5.90) m/uL BUN 38 H (9-20) mg/dL Creatinine 1.38 H (0.66-1.25) mg/dL Glucose 105 H (74-99) mg/dL Calcium 11.2 H (8.4-10.2) mg/dL Assessment and Plan (1) Dysphagia Narrative/Plan: 82-year-old man with a history of dysphagia and presbyesophagus who had a workup about a year ago done with Dr. Mabry presented back with similar complaints. Patient is unable to eat solids or take his pills without vomiting them back up within a couple hours. He has lost about 50 pounds over the past 1 year duration. 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 Likely this is the cause of the patient's symptoms, we will proceed with EGD tomorrow for further evaluation. Current Visit: Yes Status: Acute Code(s): R13.10 - DYSPHAGIA, UNSPECIFIED SNOMED Code(s): 33062951 (2) Presbyesophagus Current Visit: Yes Status: Acute Code(s): K22.89 - OTHER SPECIFIED DISEASE OF ESOPHAGUS SNOMED Code(s): 958131631 Plan: 1. Continue symptomatic and supportive care 2. Protonix 40 mg IV daily 3. Clear liquid diet, nothing by mouth after midnight 4. Patient scheduled for EGD tomorrow 5. Further recommendations forthcoming based on clinical course Thank you for this consultation, we will continue to follow. Dr. Claudy Arvizu I agree with the dictator's note, documented as a scribe by Alona Del Castillo.
[2022-05-25] MEDS: FINASTERIDE 5 MG TAB PO SCH (10:55)
[2022-05-25] MEDS: DEXTROSE 5%-0.45% NACL 1,000 ML IV SCH (10:55)
[2022-05-25] MEDS: allopurinoL 300 MG TAB PO SCH (10:55)
[2022-05-25] MEDS: atenoloL 25 MG TAB PO SCH (10:55)
[2022-05-25] MEDS: ATORVASTATIN 10 MG TAB PO SCH (10:55)
[2022-05-25] MEDS: lisinopriL 20 MG TAB PO SCH (10:55)
[2022-05-25] MEDS: PANTOPRAZOLE 40 MG/10 ML VIAL IVP SCH (11:03)
[2022-05-25] MEDS ORDERED: MAG HYDROX/AL HYDROX/SIMETH 30 ML CUP PO PRN (12:31)
[2022-05-26] MEDS: DEXTROSE 5%-0.45% NACL 1,000 ML IV SCH ×2 (04:53→13:57)
[2022-05-26 06:08] VITALS: RESP 18
--- NOTE | 2022-05-26 08:46 | P.PN ---
Subjective Principal diagnosis: Dysphagia The patient is here essentially for dysphagia. EGD is pending today. No new complaints Objective - Vital Signs Vital signs: Vital Signs Temp 97.6 F 05/26/22 03:30 Pulse 65 05/26/22 03:30 Resp 18 05/26/22 03:30 BP 125/74 05/26/22 03:30 Pulse Ox 98 05/26/22 03:30 FiO2 Intake & Output 05/25/22 05/26/22 05/26/22 18:59 06:59 18:59 Intake Total 120 0 Balance 120 0 Intake: Oral 120 0 Other: Voiding Method Toilet Urinal # Voids 1 2 - Constitutional General appearance: Present: average body habitus - EENT Eyes: Absent: abnormal pupil - Neck Neck: Absent: lymphadenopathy - Respiratory Respiratory: bilateral: CTA - Cardiovascular Rhythm: regular Heart sounds: normal: S1, S2 Abnormal Heart Sounds: Absent: S3 Gallop - Gastrointestinal General gastrointestinal: Present: soft. Absent: tenderness - Labs CBC & Chem 7: 05/24/22 17:47 05/24/22 17:47 Assessment and Plan (1) Dehydration Current Visit: Yes Status: Acute Code(s): E86.0 - DEHYDRATION SNOMED Code(s): 55356032 (2) Dysphagia Current Visit: Yes Status: Acute Code(s): R13.10 - DYSPHAGIA, UNSPECIFIED SNOMED Code(s): 22372134 (3) Presbyesophagus Current Visit: Yes Status: Acute Code(s): K22.89 - OTHER SPECIFIED DISEASE OF ESOPHAGUS SNOMED Code(s): 333348015 Plan: Appreciate GI input. Probable need for EGD with possible dilatation. Place on Vasotec IV for blood pressure. I will restart his home by mouth medications but I suspect given his history t hat we will probably withhold by mouth medication after trial.
[2022-05-26] MEDS: PANTOPRAZOLE 40 MG/10 ML VIAL IVP SCH (10:13)
[2022-05-26] MEDS: ATORVASTATIN 10 MG TAB PO SCH (10:13)
[2022-05-26] MEDS: FINASTERIDE 5 MG TAB PO SCH (10:14)
[2022-05-26] MEDS: allopurinoL 300 MG TAB PO SCH (10:14)
[2022-05-26] MEDS ORDERED: IV FLUID CONTINUATION 1,000 ML IV ONE (12:42)
[2022-05-26] MEDS ORDERED: LIDOCAINE 2% INJ 20 MG/ML (2 ML VIAL) ONE (12:45)
[2022-05-26] MEDS ORDERED: PROPOFOL 10 MG/ML 20 ML VIAL IV ONE (12:45)
[2022-05-26] MEDS: atenoloL 25 MG TAB PO SCH (13:56)
[2022-05-26] MEDS: lisinopriL 20 MG TAB PO SCH (13:56)
[2022-05-26 13:58] VITALS: TEMP 97.6
[2022-05-26 14:29] VITALS: BP 125/79; PULSE 58
--- NOTE | 2022-05-26 20:31 | PCN ---
PROCEDURE NOTE REQUESTING PHYSICIAN: Dr. Gay. BRIEF HISTORY: The patient is an 82-year-old pleasant white male, admitted to the hospital with dysphagia and passive regurgitation. He has lost 40 pounds since the onset of the symptoms in the last 1-year duration. He is, hence, scheduled for an upper endoscopy with possible dilation. PROCEDURE PERFORMED: Esophagogastroduodenoscopy. PREOPERATIVE DIAGNOSES: Progressive dysphagia and weight loss of 50 pounds in the last 1-year duration. ANESTHESIA: IV sedation per Anesthesia. DESCRIPTION OF PROCEDURE: After informed consent was obtained from the patient, he was brought to the endoscopy unit. IV conscious sedation was administered by Anesthesia on continuous monitoring. Initially, the Olympus CF-180 video endoscope was inserted into the mouth, esophagus intubated without any difficulty, and was gradually advanced into the stomach and duodenum and carefully examined. Bulb and the second part of the duodenum appeared normal. The scope at this time was withdrawn to the stomach, adequately insufflated with air, and upon careful examination, mucosa in the antrum, body, cardia, and fundus appeared normal. The scope was then withdrawn to the esophagus. The GE junction was located at 40 cm from the incisors. The entire length of esophagus had evidence of esophageal dysmotility. There was a corkscrew appearance of esophagus noted. No esophageal stricture identified. No retained food noted. The proximal cervical esophagus was carefully examined and appeared normal, and the patient tolerated the procedure well. 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 RECOMMENDATIONS: Findings of this examination were discussed with the patient. He will be scheduled for esophageal manometry to evaluate for esophageal dysmotility causing his symptoms. In the meantime, diet will be advanced as tolerated. MMODL / IJN: [id number] /
== END 2022-05-26 16:40 | disposition home or self-care (01) ==
LOC: EC 13:55 → 6NMEDSUR 18:26
PROVIDERS: ADMIT Family Medicine; ATTEND Family Medicine
DX: K22.89 Other specified disease of esophagus (principal); E86.0 Dehydration; N28.9 Disorder of kidney and ureter, unspecified; I10 Essential (primary) hypertension; E78.5 Hyperlipidemia, unspecified; N40.0 Benign prostatic hyperplasia without lower urinary tract symptoms; M10.9 Gout, unspecified; I25.10 Atherosclerotic heart disease of native coronary artery without angina pectoris; Z82.5 Family history of asthma and other chronic lower respiratory diseases; Z79.899 Other long term (current) drug therapy; Z86.16 Personal history of COVID-19; Z85.9 Personal history of malignant neoplasm, unspecified
CPT/HCPCS: 96376; 96361 ×2; 96374; 96375; 99285; 36415; 80053; 85025; 43235; G0378 ×3; S0138 ×2; J1100; J2704; C9113 ×2; J2001

== ENCOUNTER → 2023-12-20 | Day surgery (SDC) | payer MEDICARE ==
[~2023-12-20] MED LIST changes: +ALPRAZolam 0.25 MG TAB PO PRN; +CLOPIDOGREL 75 MG TAB ONE; +HEPARIN SODIUM 1,000 UN/ML (10ML VL) ONE; +HEPARIN SODIUM,PORCINE (1 ML) 2,500 UNIT in SODIUM CHLORIDE 0.9% 250 ML IRRIGATION PRN; +HEPARIN SODIUM,PORCINE 10,000 UNIT in SODIUM CHLORIDE 0.9% 1,000 ML IRRIGATION PRN; -LIDOCAINE 1% (10MG/ML) FOR IV START INTRADERMA PRN; +NITROGLYCERIN SL TABS 0.4 MG TAB SUBLINGUAL PRN; +SODIUM CHLORIDE 0.9% 1,000 ML IV SCH; +fentaNYL (PF) 50 MCG/ML 2 ML AMP ONE
[2023-12-20] MEDS: SODIUM CHLORIDE 0.9% 1,000 ML in EMPTY BAG 1 BAG IV SCH (08:30)
[2023-12-20] MEDS: IV FLUID CONTINUATION 1,000 ML IV ONE (08:30)
[2023-12-20 08:43] VITALS: TEMP 97.6
[2023-12-20] MEDS: ATORVASTATIN 80 MG TAB PO STA (08:44)
[2023-12-20] MEDS: ASPIRIN 325 MG TAB PO STA (08:44)
[2023-12-20] MEDS: ALPRAZolam 0.5 MG TAB PO PRN (08:46)
[2023-12-20 08:55] LABS: Basophils # (A) 0.1 k/uL (0-0.2); Basophils % (A) 1 %; Eosinophils # (A) 0.2 k/uL (0-0.7); Eosinophils % (A) 3 %; HCT 38.3 % (39.0-53.0); HGB 12.4 gm/dL (13.0-17.5); Lymphocytes # (A) 1.5 k/uL (1.0-4.8); Lymphocytes % (A) 19 %; MCH 32.5 pg (25.0-35.0); MCHC 32.3 g/dL (31.0-37.0); MCV 100.6 fL (80.0-100.0); Macrocytosis Slight; Mean Platelet Volume 8.9; Monocytes # (A) 0.5 k/uL (0-1.0); Monocytes % (A) 6 %; Neutrophils # (A) 5.3 k/uL (1.3-7.7); Neutrophils % (A) 68 %; Platelet Count 176 k/uL (150-450); RDW 13.7 % (11.5-15.5); WBC 7.8 k/uL (3.8-10.6)
[2023-12-20 09:07] LABS: African American GFR (CKD) 48 (>60 ml/min/1.73 sqM); Anion Gap 5 mmol/L; Blood Urea Nitrogen 39 mg/dL (9-20); Calcium 10.4 mg/dL (8.4-10.2); Carbon Dioxide 25 mmol/L (22-30); Chloride 107 mmol/L (98-107); Glucose 94 mg/dL (74-99); Non-African American GFR(CKD) 41 (>60 ml/min/1.73 sqM); Potassium 4.8 mmol/L (3.5-5.1); Sodium 137 mmol/L (137-145)
[2023-12-20] MEDS: fentaNYL (PF) 50 MCG/1 ML VIAL IVP ONE ×2 (10:08→11:14)
[2023-12-20] MEDS: LIDOCAINE 1% INJ 10MG/ML (20 ML MDV) SQ ONE (10:08)
[2023-12-20] MEDS: MIDAZOLAM 2 MG/2 ML VIAL IVP ONE (10:08)
[2023-12-20] MEDS: VERAPAMIL 2.5 MG/ML 4 ML VIAL INTRAARTER ONE (10:10)
[2023-12-20] MEDS: HEPARIN SODIUM 1,000 UN/ML (10ML VL) IVP ONE ×4 (10:14→10:56)
[2023-12-20] MEDS: HEPARIN SODIUM,PORCINE (1 ML) 2,500 UNIT in SODIUM CHLORIDE 0.9% 250 ML IRRIGATION ONE (10:15)
[2023-12-20] MEDS: HEPARIN SODIUM,PORCINE 10,000 UNIT in SODIUM CHLORIDE 0.9% 1,000 ML IRRIGATION ONE (10:15)
[2023-12-20] MEDS: CLOPIDOGREL 75 MG TAB PO ONE (10:31)
--- NOTE | 2023-12-20 10:57 | CC ---
CARDIAC CATHETERIZATION REPORT INDICATION: Shortness of breath, fatigue, and tiredness with an abnormal nuclear scan showing ischemic cardiomyopathy with an ejection fraction of 42%. PROCEDURE NOTE: After obtaining informed consent, left heart catheterization and coronary angiogram were performed via the right radial artery using standard Lali catheters. The patient tolerated the procedure well without any obvious immediate complications. The patient received moderate conscious sedation. Total sedation time was 13 minutes. Right radial artery access was obtained using Seldinger technique. 6-Cymro sheath was placed. Catheters and wires were floated into the ascending aorta under fluoroscopic guidance. The patient received verapamil and heparin per protocol. FINDINGS: 1. Hemodynamics: Left ventricular end-diastolic pressure is 12 mm. There is no significant gradient across the aortic valve. 2. Left ventriculogram: Left ventriculogram is not performed. 3. Angiographic Data: a.Left main coronary artery: Left main coronary artery is a normal-sized vessel and was free of stenosis, divides into left anterior descending coronary artery and circumflex coronary artery. LAD shows mild nonobstructive disease involving the midportion. Circumflex coronary artery and its branches are free of significant disease. Right coronary artery is a large dominant vessel that shows focal 95% ostial stenosis. CONCLUSION: Ostial right coronary artery stenosis. PLAN: Angiographic data was reviewed by Dr. Ruth, the on-call customer retention representative, who will attempt angioplasty with stent placement of the right coronary artery. MMODL / IJN: [id number] /
[2023-12-20] MEDS: IOPAMIDOL-370 100ML BTL INTRATHECA ONE (11:44)
[2023-12-20 13:57] VITALS: PULSE 54
[2023-12-20 14:22] VITALS: BP 160/72; RESP 14
--- NOTE | 2023-12-21 16:04 | P.PRCINT ---
Percutaneous Coronary Int. - Percutaneous Coronary Intervention Percutaneous Coronary Intervention: PROCEDURES PERFORMED: Right coronary angiography, PCI proximal RCA with a 4.0 x 8mm Xience ELMIRA, post dilated with a 4.5mm NC balloon, Shockwave lithotripsy with a 4.0mm balloon, IVUS RCA INDICATION: abnormal stress test, drop in ejection fraction with cardiomyopathy CONSENT:I have discussed the risks, benefits and alternative therapies for the above-mentioned procedure and for both sedation/analgesia as well as necessary blood product administration, if indicated, as they pertain to this patient. The patient has indicated understanding and acceptance of the risks and procedures discussed. PROCEDURE: After the risks, benefits and alternatives of the above mentioned procedure explained in detail with the patient, informed consent was obtained. Patient was taken to the catheterization lab and prepped and draped in usual fashion. A 6-Syriac sheath had already been placed in the right radial artery. The decision was made to perform PCI of the RCA. Heparin was given. A 6FR FR 5 guide catheter was used to engage the RCA. A 0.014 pressure wire was advanced the distal RCA. predilation was performed with a 2.0 and then 3.0 noncompliant balloon. Intravascular ultrasound showed focal diseasein reference vessel 4.0- 4.5 mm.. The decision was made to perform lithotripsy and initially could not advance lithotripsy balloon. Therefore predilation was performed with a 4.0 noncompliant balloon. Lithotripsy balloon angioplasty was performed for 5 runs of the ostial RCA disease. next a 4.0 x 8 mm Xience ELMIRA was placed at the origin of the RCA. The stent was post dilated with a 4.5mm NC balloon. Final angiograms and intervascular ultrasound were performed.. Intervention there is 90% stenosis and SAUMYA-3 flow and postintervention there was less than 10% stenosis and SAUMYA-3 flow. The right radial sheath was removed and a TR band was placed with hemostasis achieved. The patient tolerated the procedure well. Patient was transported back to the post catheterization holding area in stable condition. Conscious Sedation: Patient was monitored under the direct supervision of myself for conscious sedation using Versed and fentanyl for a total duration of 56 minutes HEMODYNAMICS: Ao: 141/78 SELECTIVE CORONARY ARTERIOGRAPHY: LEFT MAIN: See diagnostic report LEFT ANTERIOR DESCENDING CORONARY ARTERY: See diagnostic report LEFT CIRCUMFLEX CORONARY ARTERY: See diagnostic report RIGHT CORONARY ARTERY: The right coronary artery is a large caliber vessel which gives off a PDA and PLV branch and is the dominant vessel. There is an ostial 90% stenosis followed by a mild post stenotic aneurysmal portion and otherwise mild 20-30% stenosis FINAL IMPRESSION: 1. CAD as described above including 90% RCA stenosis 2. S/p PCI proximal RCA with a 4.0 x 8mm Xience ELMIRA, post dilated with a 4.5mm NC balloon, Shockwave lithotripsy with a 4.0mm balloon PLAN: 1. Aggressive risk factor modification per most recent ACC/AHA guidelines. 2. Continue dual antiplatelts with aspirin and Plavix for 6 months.
== END ==
LOC: CATHCVL 07:50
PROVIDERS: ATTEND Internal Medicine Cardiovascular Disease
DX: I25.5 Ischemic cardiomyopathy (principal); I25.10 Atherosclerotic heart disease of native coronary artery without angina pectoris
CPT/HCPCS: 92978; 93458; 92972; 80048; 85025; C9600; C1769 ×2; C1887 ×3; C1894; C1725 ×5; C1753; C1874; C1761; J2250; J1644 ×3; J2001; Q9967; J3010

== ENCOUNTER → 2024-10-05 | Outpatient (CLI) | payer MEDICARE ==
[2024-10-05 15:18] LABS: HCT 34.5 % (39.6-50.0); HGB 11.5 g/dL (13.0-17.0); MCHC 33.3 g/dL (32.0-37.0); MCV 99.1 FL (80.0-97.0); Mean Platelet Volume 11.5 FL (9.5-12.2); NRBC Per 100 WBC 0 X 10*3/uL (0.00-0.01); Platelet Count 198 X 10*3/uL (140-440); RBC 3.48 X 10*6/uL (4.40-5.60); RDW 13.9 % (11.5-14.5); WBC 6.85 X 10*3/uL (4.50-10.00)
[2024-10-05 15:50] LABS: BUN/Creat Ratio 27.67 Ratio (12.00-20.00); Blood Urea Nitrogen 49.8 mg/dL (9.0-27.0); Chol/HDL Ratio 3.32 Ratio; Glucose 114 mg/dL (70-110); LDL Cholesterol,Calculated 84.2 mg/dL (0.0-131.0)
[2024-10-05 15:51] LABS: ALT 13 U/L (10-49); AST 19 U/L (14-35); Calcium 10.5 mg/dL (8.7-10.3); Carbon Dioxide 20.7 mmol/L (21.6-31.8); Chloride 108 mmol/L (96-109); Sodium 140 mmol/L (135-145)
== END | disposition home or self-care (01) ==
LOC: LABWHC1 08:53
PROVIDERS: ATTEND Internal Medicine Cardiovascular Disease
DX: E78.2 Mixed hyperlipidemia (principal); R06.02 Shortness of breath
CPT/HCPCS: 36415; 80048; 80061; 84443; 84450; 84460; 85027